=== PATIENT | male | born 1940 | race Caucasian/White ===

== ENCOUNTER 2017-07-02 10:39 | Inpatient (IN) | payer MEDICARE, OTHER ==
[~2017-07-02] VITALS: Ht 193 cm; Wt 116.4 kg
[~2017-07-02 10:39] MED LIST: ALBIPROI INH; ALBU90OI6 INH; AMLO10; AMLO10 PO; AMLO5 PO; ASPI81CH PO; Brovana15 MCG/2 M NEB; CALCAVITDA; Cymbalta30 MG; DIGO.125 PO; Dyazide 37.5-21 EACH PO; EZET10; EZET10 PO; FISH1000; FLUSAL2505 INH; GLIP10 PO; GLIP5; GLUC500; Glucophage1000 MG PO; HYDACE10B PO; Hair, Skin & N1 EACH; Hydrocodone-Ap1 EA23; METO100ER PO; METO50ER PO; Neurontin300 MG PO; OMEPRAZOLE MAGN20 MG PO; ONE DAILY COMP1 EACH PO; OXAP600; PREG50 PO; PROBIOTIC1 EAC1 PO; SITA50T2 PO; TOUJEO SOL300 UNIT/1; TRIHYD5075 PO; VENL150ER PO; VENL75ER PO; WARF5 PO
[2017-07-02 11:26] LABS: BASOPHILS ABSOLUTE AUTO 0.02 K/mm3 (0.00-0.23); BASOPHILS PERCENT AUTO 0 % (0-2); EOSINOPHILS ABSOLUTE AUTO 0.07 K/mm3 (0.00-0.68); EOSINOPHILS PERCENT AUTO 1 % (0-6); Hematocrit 32.7 % (37.0-53.0); Hemoglobin 10.4 g/dL (13.5-17.5); IMMATURE GRAN ABSOLUTE AUTO 0.06 K/mm3 (0.00-0.10); IMMATURE GRAN PERCENT AUTO 1 % (0-1); LYMPHOCYTES ABSOLUTE AUTO 2.74 K/mm3 (0.84-5.20); LYMPHOCYTES PERCENT AUTO 38 % (21-46); MONOCYTES ABSOLUTE AUTO 0.72 K/mm3 (0.16-1.47); MONOCYTES PERCENT AUTO 10 % (4-13); Mean Corpuscular HGB 31.8 pg (26.0-34.0); Mean Corpuscular HGB Conc 31.8 g/dL (31.5-36.5); Mean Corpuscular Volume 100 fL (80-100); Mean Platelet Volume 11.5 fL (9.1-12.4); NEUTROPHILS ABSOLUTE AUTO 3.69 K/mm3 (1.96-9.15); NEUTROPHILS PERCENT AUTO 51 % (41-73); Platelet Count 207 K/mm3 (150-400); RDW Coefficient Variation 16.4 % (11.7-14.2); RDW Standard Deviation 59.7 fL (35.1-46.3); Red Blood Cell Count 3.27 M/mm3 (4.30-5.90)
[2017-07-02 11:48] LABS: Alanine Aminotransfer (ALT/SGP 28 U/L (12-78); Albumin, Blood 3.7 g/dL (3.4-5.0); Albumin/Globulin Ratio 1.1 (0.8-1.8); Alk Phos 71 U/L (50-136); Anion Gap 8 mmol/L (6-16); Aspartate Aminotrans (AST/SGOT 26 U/L (12-37); Bilirubin, Total 0.6 mg/dL (0.1-1.0); Blood Urea Nitrogen 15 mg/dL (8-24); Bun/Creatinine Ratio 20.7 (12.0-20.0); CO2, Blood 26 mmol/L (21-32); Calcium, Blood 8.3 mg/dL (8.5-10.1); Chloride, Blood 105 mmol/L (98-108); Creatinine, Blood 0.72 mg/dL (0.60-1.20); Globulin, Blood 3.3 g/dL (2.2-4.0); Glomerular Filtration Rate >60 (60-); Glucose, Blood 191 mg/dL (70-99); Potassium, Blood 4.4 mmol/L (3.5-5.5); Sodium, Blood 139 mmol/L (136-145); Troponin I <0.015 ng/mL (0.000-0.040)
[2017-07-02] MEDS ORDERED: HYDR1TAB94 PO (13:16)
[2017-07-02] MEDS ORDERED: TOUJEO SOL300 UNIT/1 SC (13:19)
[2017-07-02] MEDS ORDERED: AZIT500 PO (13:19)
[2017-07-02] MEDS ORDERED: PRED20 PO (13:20)
[2017-07-02 13:55] LABS: International Normalized Ratio 2.55; Prothrombin Time Results 27.3 Sec (9.7-11.5)
[2017-07-02 14:11] LABS: Digoxin (Lanoxin) 0.73 ug/mL (0.80-2.00)
[2017-07-02] MEDS ORDERED: VENL25 PO (16:42)
[2017-07-02] MEDS ORDERED: GABA300 PO (16:44)
[2017-07-02] MEDS ORDERED: SITA50T2 PO (16:52)
[2017-07-03 03:16] LABS: PCO2 Arterial 32.9 mmHg (35-45); PO2 Arterial 59.4 mmHg (80-100); pH Blood Arterial 7.41 (7.35-7.45)
[2017-07-03 04:31] LABS: Source, Urine Catheter
[2017-07-03 04:33] LABS: Anion Gap 11 mmol/L (6-16); Blood Urea Nitrogen 19 mg/dL (8-24); Bun/Creatinine Ratio 20.1 (12.0-20.0); CO2, Blood 23 mmol/L (21-32); Chloride, Blood 102 mmol/L (98-108); Creatinine, Blood 0.95 mg/dL (0.60-1.20); Glomerular Filtration Rate >60 (60-); Glucose, Blood 246 mg/dL (70-99); Potassium, Blood 4.2 mmol/L (3.5-5.5); Sodium, Blood 136 mmol/L (136-145)
[2017-07-03 04:34] LABS: Bilirubin, Urine Neg (Neg); Blood, Urine Neg (Neg); Glucose Qualitative, Urine Neg (Neg); Ketones, Urine Neg (Neg); Leukocyte Esterase, Urine Neg (Neg); Nitrite, Urine Neg (Neg); Protein, Urine 1+ (Neg); Urobilinogen, Urine NORM (Normal)
[2017-07-03 04:37] LABS: International Normalized Ratio 2.46; Prothrombin Time Results 26.3 Sec (9.7-11.5)
[2017-07-03 04:39] LABS: Appearance, Urine Clear (Clear); Color, Urine Yellow (P-Yellow)
[2017-07-03 04:50] LABS: Influenza A Negative (NEGATIVE); Influenza B Negative (NEGATIVE)
[2017-07-03 04:58] LABS: Digoxin (Lanoxin) 0.46 ug/mL (0.80-2.00)
[2017-07-03 05:43] LABS: Troponin I 0.032 ng/mL (0.000-0.040)
[2017-07-04 05:11] LABS: pH Blood Arterial 7.47 (7.35-7.45)
[2017-07-04 05:12] LABS: PCO2 Arterial 35.9 mmHg (35-45); PO2 Arterial 65.3 mmHg (80-100)
[2017-07-04 05:32] LABS: BASOPHILS PERCENT AUTO 0 % (0-2); EOSINOPHILS PERCENT AUTO 0 % (0-6); Hemoglobin 10.2 g/dL (13.5-17.5); IMMATURE GRAN ABSOLUTE AUTO 0.04 K/mm3 (0.00-0.10); IMMATURE GRAN PERCENT AUTO 1 % (0-1); LYMPHOCYTES ABSOLUTE AUTO 1.01 K/mm3 (0.84-5.20); LYMPHOCYTES PERCENT AUTO 21 % (21-46); MONOCYTES ABSOLUTE AUTO 0.31 K/mm3 (0.16-1.47); MONOCYTES PERCENT AUTO 6 % (4-13); Mean Corpuscular HGB 31.9 pg (26.0-34.0); Mean Corpuscular HGB Conc 32.9 g/dL (31.5-36.5); Mean Platelet Volume 11.8 fL (9.1-12.4); NEUTROPHILS ABSOLUTE AUTO 3.52 K/mm3 (1.96-9.15); NEUTROPHILS PERCENT AUTO 72 % (41-73); Platelet Count 225 K/mm3 (150-400); RDW Coefficient Variation 16.3 % (11.7-14.2); RDW Standard Deviation 56.6 fL (35.1-46.3); White Blood Cell Count 4.88 K/mm3 (4.00-11.30)
[2017-07-04 05:35] LABS: Mean Corpuscular Volume 97 fL (80-100)
[2017-07-04 05:47] LABS: International Normalized Ratio 2.25
[2017-07-04 05:52] LABS: Anion Gap 10 mmol/L (6-16); Blood Urea Nitrogen 20 mg/dL (8-24); Bun/Creatinine Ratio 26.9 (12.0-20.0); CO2, Blood 26 mmol/L (21-32); CPK Creatine Kinase 60 U/L (39-308); Calcium, Blood 8.7 mg/dL (8.5-10.1); Chloride, Blood 101 mmol/L (98-108); Creatine Kinase MB 2.5 ng/mL (0.0-3.6); Creatine Kinase MB Index 4.2 (0.0-4.0); Creatinine, Blood 0.74 mg/dL (0.60-1.20); Glomerular Filtration Rate >60 (60-); Glucose, Blood 253 mg/dL (70-99); Potassium, Blood 4.1 mmol/L (3.5-5.5); Sodium, Blood 137 mmol/L (136-145)
[2017-07-05 04:10] LABS: International Normalized Ratio 2.9; Prothrombin Time Results 31.2 Sec (9.7-11.5)
[2017-07-05 07:31] LABS: BASOPHILS PERCENT AUTO 0 % (0-2); EOSINOPHILS PERCENT AUTO 0 % (0-6); Hematocrit 32.7 % (37.0-53.0); Hemoglobin 10.5 g/dL (13.5-17.5); IMMATURE GRAN ABSOLUTE AUTO 0.03 K/mm3 (0.00-0.10); IMMATURE GRAN PERCENT AUTO 1 % (0-1); LYMPHOCYTES ABSOLUTE AUTO 1.04 K/mm3 (0.84-5.20); LYMPHOCYTES PERCENT AUTO 19 % (21-46); MONOCYTES ABSOLUTE AUTO 0.69 K/mm3 (0.16-1.47); MONOCYTES PERCENT AUTO 13 % (4-13); Mean Corpuscular HGB 31.4 pg (26.0-34.0); Mean Corpuscular HGB Conc 32.1 g/dL (31.5-36.5); Mean Corpuscular Volume 98 fL (80-100); Mean Platelet Volume 11.3 fL (9.1-12.4); NEUTROPHILS ABSOLUTE AUTO 3.62 K/mm3 (1.96-9.15); NEUTROPHILS PERCENT AUTO 67 % (41-73); Platelet Count 233 K/mm3 (150-400); RDW Coefficient Variation 16.4 % (11.7-14.2); RDW Standard Deviation 59.4 fL (35.1-46.3); Red Blood Cell Count 3.34 M/mm3 (4.30-5.90); White Blood Cell Count 5.38 K/mm3 (4.00-11.30)
[2017-07-05 07:52] LABS: Anion Gap 10 mmol/L (6-16); Blood Urea Nitrogen 21 mg/dL (8-24); Bun/Creatinine Ratio 29.2 (12.0-20.0); CO2, Blood 28 mmol/L (21-32); Calcium, Blood 9.1 mg/dL (8.5-10.1); Chloride, Blood 100 mmol/L (98-108); Creatinine, Blood 0.72 mg/dL (0.60-1.20); Glomerular Filtration Rate >60 (60-); Glucose, Blood 301 mg/dL (70-99); Potassium, Blood 4.1 mmol/L (3.5-5.5); Sodium, Blood 138 mmol/L (136-145)
[2017-07-06 06:35] LABS: International Normalized Ratio 2.66; Prothrombin Time Results 28.5 Sec (9.7-11.5)
[2017-07-06] MEDS ORDERED: LISI5 PO (11:26)
[2017-07-06] MEDS ORDERED: SPIR25 PO (11:27)
[2017-07-25] MEDS ORDERED: PREG50 (15:45)
== END 2017-07-06 13:35 | disposition home or self-care (01) | DRG 871 ==
LOC: ER 10:39 → MEDS 14:08 → ICUE 14:08 → MEDS 15:06 → ICUE 07-03 03:37 → MEDS 07-05 15:38
PROVIDERS: Emergency Medicine; Internal Medicine; Internal Medicine Critical Care Medicine; Pharmacist
PROC: 5A09357 Assistance with Respiratory Ventilation, Less than 24 Consecutive Hours, Continuous Positive Airway Pressure (ICD-10-PCS; principal; 2017-07-03)
DX: A41.9 Sepsis, unspecified organism (principal); J18.9 Pneumonia, unspecified organism; J96.01 Acute respiratory failure with hypoxia; I50.41 Acute combined systolic (congestive) and diastolic (congestive) heart failure; I48.2 Chronic atrial fibrillation; E11.9 Type 2 diabetes mellitus without complications; I11.0 Hypertensive heart disease with heart failure; J44.0 Chronic obstructive pulmonary disease with (acute) lower respiratory infection; J44.1 Chronic obstructive pulmonary disease with (acute) exacerbation; I71.4 Abdominal aortic aneurysm, without rupture; K90.0 Celiac disease; G89.29 Other chronic pain; E66.9 Obesity, unspecified; E78.5 Hyperlipidemia, unspecified; G47.33 Obstructive sleep apnea (adult) (pediatric); F10.20 Alcohol dependence, uncomplicated; Z88.8 Allergy status to other drugs, medicaments and biological substances; Z85.46 Personal history of malignant neoplasm of prostate; Z79.01 Long term (current) use of anticoagulants; Z79.82 Long term (current) use of aspirin; Z87.891 Personal history of nicotine dependence; Z79.52 Long term (current) use of systemic steroids; Z68.33 Body mass index [BMI] 33.0-33.9, adult; Z79.891 Long term (current) use of opiate analgesic; Z79.899 Other long term (current) drug therapy; Z79.4 Long term (current) use of insulin
CPT/HCPCS: 36415; 36600; 51702; 71045; 71046; 80048; 80053; 80162; 80202; 82550; 82553; 82803; 82947; 83605; 83880; 84145; 84484; 85025; 85610; 85730; 87040; 87804; 93005; 93010; 93306; 94640; 94660; 94760; 94762; 96365; 97161; 97165; 97530; 99285; G8978; G8979; G8980; G8987; G8988; G8989; J0696; J1650; J1815; J1940; J1956; J2060; J2543; J2930; J3370; J3411; J7030; J7050

== ENCOUNTER 2017-07-26 03:00 | Day surgery (SDC) | payer MEDICARE, OTHER ==
[~2017-07-26] VITALS: Ht 193 cm; Wt 113.0 kg
[~2017-07-26 03:00] MED LIST changes: +AZIT500 PO; +GABA300 PO; +HYDR1TAB94 PO; +LISI5 PO; +PRED20 PO; +PREG50; +SPIR25 PO; +TOUJEO SOL300 UNIT/1 SC; +VENL25 PO
[2017-07-27 04:56] LABS: BASOPHILS ABSOLUTE AUTO 0.02 K/mm3 (0.00-0.23); BASOPHILS PERCENT AUTO 0 % (0-2); EOSINOPHILS ABSOLUTE AUTO 0.37 K/mm3 (0.00-0.68); EOSINOPHILS PERCENT AUTO 3 % (0-6); Hematocrit 31.7 % (37.0-53.0); Hemoglobin 10.4 g/dL (13.5-17.5); IMMATURE GRAN ABSOLUTE AUTO 0.03 K/mm3 (0.00-0.10); IMMATURE GRAN PERCENT AUTO 0 % (0-1); LYMPHOCYTES ABSOLUTE AUTO 6.23 K/mm3 (0.84-5.20); LYMPHOCYTES PERCENT AUTO 55 % (21-46); MONOCYTES ABSOLUTE AUTO 0.92 K/mm3 (0.16-1.47); MONOCYTES PERCENT AUTO 8 % (4-13); Mean Corpuscular HGB 30.5 pg (26.0-34.0); Mean Corpuscular HGB Conc 32.8 g/dL (31.5-36.5); NEUTROPHILS ABSOLUTE AUTO 3.77 K/mm3 (1.96-9.15); NEUTROPHILS PERCENT AUTO 33 % (41-73); Platelet Count 188 K/mm3 (150-400); RDW Coefficient Variation 14.8 % (11.7-14.2); RDW Standard Deviation 50.7 fL (35.1-46.3); Red Blood Cell Count 3.41 M/mm3 (4.30-5.90); White Blood Cell Count 11.34 K/mm3 (4.00-11.30)
[2017-07-27 05:01] LABS: Mean Corpuscular Volume 93 fL (80-100)
[2017-07-27 05:09] LABS: International Normalized Ratio 1.19; Prothrombin Time Results 12.4 Sec (9.7-11.5)
[2017-07-27 05:15] LABS: Anion Gap 8 mmol/L (6-16); Blood Urea Nitrogen 13 mg/dL (8-24); Bun/Creatinine Ratio 17.5 (12.0-20.0); CO2, Blood 24 mmol/L (21-32); Calcium, Blood 8.4 mg/dL (8.5-10.1); Chloride, Blood 102 mmol/L (98-108); Creatinine, Blood 0.74 mg/dL (0.60-1.20); Glomerular Filtration Rate >60 (60-); Glucose, Blood 139 mg/dL (70-99); Potassium, Blood 4.2 mmol/L (3.5-5.5); Sodium, Blood 134 mmol/L (136-145)
[2017-07-27] MEDS ORDERED: CLOP75 PO (08:59)
[2017-07-27] MEDS ORDERED: METO50ER PO (09:00)
[2017-07-27] MEDS ORDERED: DIGOX125 MCG PO (09:01)
[2017-07-27] MEDS ORDERED: PANT40 PO (09:02)
[2017-07-27] MEDS ORDERED: TORSE20 PO (09:07)
== END 2017-07-27 12:15 | disposition home or self-care (01) ==
LOC: MHTC 03:00 → ICUW 10:02 → ICUE 15:19 → MHTC 07-27 12:15
PROVIDERS: Internal Medicine Interventional Cardiology; Pharmacist
PROC: 027034Z Dilation of Coronary Artery, One Artery with Drug-eluting Intraluminal Device, Percutaneous Approach (ICD-10-PCS; principal; 2017-07-26)
PROC: B211YZZ Fluoroscopy of Multiple Coronary Arteries using Other Contrast (ICD-10-PCS; principal; 2017-07-26)
PROC: B214YZZ Fluoroscopy of Right Heart using Other Contrast (ICD-10-PCS; principal; 2017-07-26)
PROC: 4A023N7 Measurement of Cardiac Sampling and Pressure, Left Heart, Percutaneous Approach (ICD-10-PCS; principal; 2017-07-26)
PROC: B241ZZ3 Ultrasonography of Multiple Coronary Arteries, Intravascular (ICD-10-PCS; principal; 2017-07-26)
PROC: 02703ZZ Dilation of Coronary Artery, One Artery, Percutaneous Approach (ICD-10-PCS; principal; 2017-07-26)
DX: I25.118 Atherosclerotic heart disease of native coronary artery with other forms of angina pectoris (principal); I25.84 Coronary atherosclerosis due to calcified coronary lesion; I42.0 Dilated cardiomyopathy; I11.0 Hypertensive heart disease with heart failure; I50.9 Heart failure, unspecified; J44.9 Chronic obstructive pulmonary disease, unspecified; F32.9 Major depressive disorder, single episode, unspecified; E78.5 Hyperlipidemia, unspecified; Z87.891 Personal history of nicotine dependence; I35.0 Nonrheumatic aortic (valve) stenosis; G47.33 Obstructive sleep apnea (adult) (pediatric); E11.9 Type 2 diabetes mellitus without complications; Z79.4 Long term (current) use of insulin
CPT/HCPCS: 36415; 80048; 82947; 85025; 85347; 85610; 92978; 93005; 93010; 93460; 99152; 99153; A9270; C1725; C1753; C1769; C1874; C1894; C9600; J1644; J1815; J2250; J3010; J7030; Q9967

== ENCOUNTER 2017-08-30 18:47 | Inpatient (IN) | payer MEDICARE, OTHER ==
[~2017-08-30] VITALS: Ht 193 cm; Wt 113.0 kg
[~2017-08-30 18:47] MED LIST changes: +CLOP75 PO; +DIGOX125 MCG PO; +PANT40 PO; +TORSE20 PO
[2017-08-30 19:51] LABS: BASOPHILS ABSOLUTE AUTO 0.02 K/mm3 (0.00-0.23); BASOPHILS PERCENT AUTO 0 % (0-2); EOSINOPHILS ABSOLUTE AUTO 0.03 K/mm3 (0.00-0.68); EOSINOPHILS PERCENT AUTO 0 % (0-6); Hematocrit 35.4 % (37.0-53.0); Hemoglobin 11.6 g/dL (13.5-17.5); IMMATURE GRAN ABSOLUTE AUTO 0.06 K/mm3 (0.00-0.10); IMMATURE GRAN PERCENT AUTO 0 % (0-1); LYMPHOCYTES ABSOLUTE AUTO 2.76 K/mm3 (0.84-5.20); LYMPHOCYTES PERCENT AUTO 19 % (21-46); MONOCYTES ABSOLUTE AUTO 0.79 K/mm3 (0.16-1.47); MONOCYTES PERCENT AUTO 6 % (4-13); Mean Corpuscular HGB 29.9 pg (26.0-34.0); Mean Corpuscular HGB Conc 32.8 g/dL (31.5-36.5); Mean Corpuscular Volume 91 fL (80-100); Mean Platelet Volume 11.5 fL (9.1-12.4); NEUTROPHILS ABSOLUTE AUTO 10.73 K/mm3 (1.96-9.15); NEUTROPHILS PERCENT AUTO 75 % (41-73); Platelet Count 249 K/mm3 (150-400); RDW Coefficient Variation 15.7 % (11.7-14.2); RDW Standard Deviation 52.2 fL (35.1-46.3); Red Blood Cell Count 3.88 M/mm3 (4.30-5.90); White Blood Cell Count 14.39 K/mm3 (4.00-11.30)
[2017-08-30 20:15] LABS: Alanine Aminotransfer (ALT/SGP 20 U/L (12-78); Albumin, Blood 3.9 g/dL (3.4-5.0); Albumin/Globulin Ratio 1.1 (0.8-1.8); Alk Phos 87 U/L (50-136); Anion Gap 9 mmol/L (6-16); Aspartate Aminotrans (AST/SGOT 19 U/L (12-37); Bilirubin, Total 0.6 mg/dL (0.1-1.0); Blood Urea Nitrogen 18 mg/dL (8-24); Bun/Creatinine Ratio 23.1 (12.0-20.0); CO2, Blood 22 mmol/L (21-32); Calcium, Blood 8.6 mg/dL (8.5-10.1); Chloride, Blood 106 mmol/L (98-108); Creatinine, Blood 0.78 mg/dL (0.60-1.20); Globulin, Blood 3.6 g/dL (2.2-4.0); Glomerular Filtration Rate >60 (60-); Glucose, Blood 199 mg/dL (70-99); Potassium, Blood 3.9 mmol/L (3.5-5.5); Sodium, Blood 137 mmol/L (136-145); Total Protein, Blood 7.5 g/dL (6.4-8.2)
[2017-08-30 20:48] LABS: Influenza A Negative (NEGATIVE); Influenza B Negative (NEGATIVE)
[2017-08-30 22:40] LABS: Source, Urine Clean Catch
[2017-08-30 22:43] LABS: Appearance, Urine Clear (Clear); Bilirubin, Urine Neg (Neg); Blood, Urine Neg (Neg); Color, Urine Yellow (P-Yellow); Glucose Qualitative, Urine Neg (Neg); Ketones, Urine Neg (Neg); Leukocyte Esterase, Urine 1+ (Neg); Nitrite, Urine Neg (Neg); Protein, Urine 3+ (Neg); Urobilinogen, Urine 2+ (Normal)
[2017-08-30 22:49] LABS: Bacteria Mod /hpf; Red Blood Cells, Urine 0-2 /hpf (0-2); Squamous Epithelial Cells Few /hpf (Few); White Blood Cells, Urine 0-2 /hpf (0-5)
[2017-08-30 23:56] LABS: Digoxin (Lanoxin) 0.42 ug/mL (0.80-2.00)
[2017-08-31 04:12] LABS: BASOPHILS ABSOLUTE AUTO 0.02 K/mm3 (0.00-0.23); BASOPHILS PERCENT AUTO 0 % (0-2); EOSINOPHILS ABSOLUTE AUTO 0.03 K/mm3 (0.00-0.68); EOSINOPHILS PERCENT AUTO 0 % (0-6); Hematocrit 32.9 % (37.0-53.0); Hemoglobin 10.8 g/dL (13.5-17.5); IMMATURE GRAN ABSOLUTE AUTO 0.02 K/mm3 (0.00-0.10); IMMATURE GRAN PERCENT AUTO 0 % (0-1); LYMPHOCYTES PERCENT AUTO 30 % (21-46); MONOCYTES ABSOLUTE AUTO 0.48 K/mm3 (0.16-1.47); MONOCYTES PERCENT AUTO 5 % (4-13); Mean Corpuscular HGB 29.7 pg (26.0-34.0); Mean Corpuscular HGB Conc 32.8 g/dL (31.5-36.5); Mean Corpuscular Volume 90 fL (80-100); Mean Platelet Volume 11.8 fL (9.1-12.4); NEUTROPHILS ABSOLUTE AUTO 6.06 K/mm3 (1.96-9.15); NEUTROPHILS PERCENT AUTO 64 % (41-73); Platelet Count 211 K/mm3 (150-400); RDW Coefficient Variation 15.7 % (11.7-14.2); Red Blood Cell Count 3.64 M/mm3 (4.30-5.90); White Blood Cell Count 9.41 K/mm3 (4.00-11.30)
[2017-08-31 04:31] LABS: Alanine Aminotransfer (ALT/SGP 16 U/L (12-78); Albumin, Blood 3.3 g/dL (3.4-5.0); Alk Phos 72 U/L (50-136); Anion Gap 10 mmol/L (6-16); Aspartate Aminotrans (AST/SGOT 15 U/L (12-37); Bilirubin, Total 0.6 mg/dL (0.1-1.0); Blood Urea Nitrogen 16 mg/dL (8-24); Bun/Creatinine Ratio 21.7 (12.0-20.0); CO2, Blood 23 mmol/L (21-32); Chloride, Blood 107 mmol/L (98-108); Creatinine, Blood 0.74 mg/dL (0.60-1.20); Globulin, Blood 3.4 g/dL (2.2-4.0); Glomerular Filtration Rate >60 (60-); Glucose, Blood 207 mg/dL (70-99); Sodium, Blood 140 mmol/L (136-145); Total Protein, Blood 6.7 g/dL (6.4-8.2)
[2017-08-31 05:54] LABS: Digoxin (Lanoxin) 0.37 ug/mL (0.80-2.00)
[2017-09-01 05:22] LABS: Anion Gap 9 mmol/L (6-16); Blood Urea Nitrogen 20 mg/dL (8-24); Bun/Creatinine Ratio 23.2 (12.0-20.0); CO2, Blood 25 mmol/L (21-32); Chloride, Blood 103 mmol/L (98-108); Creatinine, Blood 0.86 mg/dL (0.60-1.20); Glomerular Filtration Rate >60 (60-); Glucose, Blood 307 mg/dL (70-99); Potassium, Blood 4.3 mmol/L (3.5-5.5); Sodium, Blood 137 mmol/L (136-145)
[2017-09-01 19:38] LABS: Vancomycin, Trough 12.3 ug/mL (5.0-10.0)
[2017-09-02 05:25] LABS: BASOPHILS ABSOLUTE AUTO 0.01 K/mm3 (0.00-0.23); BASOPHILS PERCENT AUTO 0 % (0-2); EOSINOPHILS PERCENT AUTO 0 % (0-6); Hematocrit 33.9 % (37.0-53.0); Hemoglobin 11.3 g/dL (13.5-17.5); IMMATURE GRAN ABSOLUTE AUTO 0.07 K/mm3 (0.00-0.10); IMMATURE GRAN PERCENT AUTO 1 % (0-1); LYMPHOCYTES ABSOLUTE AUTO 1.05 K/mm3 (0.84-5.20); LYMPHOCYTES PERCENT AUTO 19 % (21-46); MONOCYTES ABSOLUTE AUTO 0.49 K/mm3 (0.16-1.47); MONOCYTES PERCENT AUTO 9 % (4-13); Mean Corpuscular HGB 29.8 pg (26.0-34.0); Mean Corpuscular HGB Conc 33.3 g/dL (31.5-36.5); Mean Corpuscular Volume 89 fL (80-100); Mean Platelet Volume 12.1 fL (9.1-12.4); NEUTROPHILS ABSOLUTE AUTO 4.01 K/mm3 (1.96-9.15); NEUTROPHILS PERCENT AUTO 71 % (41-73); Platelet Count 255 K/mm3 (150-400); RDW Coefficient Variation 15.1 % (11.7-14.2); RDW Standard Deviation 49.1 fL (35.1-46.3); Red Blood Cell Count 3.79 M/mm3 (4.30-5.90); White Blood Cell Count 5.63 K/mm3 (4.00-11.30)
[2017-09-02 06:01] LABS: Anion Gap 8 mmol/L (6-16); Blood Urea Nitrogen 25 mg/dL (8-24); Bun/Creatinine Ratio 30.8 (12.0-20.0); CO2, Blood 24 mmol/L (21-32); Chloride, Blood 102 mmol/L (98-108); Creatinine, Blood 0.81 mg/dL (0.60-1.20); Glomerular Filtration Rate >60 (60-); Glucose, Blood 348 mg/dL (70-99); Potassium, Blood 4.4 mmol/L (3.5-5.5); Sodium, Blood 134 mmol/L (136-145)
[2017-09-02] MEDS ORDERED: Mucinex600 MG PO (11:07)
[2017-09-02] MEDS ORDERED: Augmentin 875-1 EACH PO (11:11)
[2017-09-02] MEDS ORDERED: DOXY100 PO (11:12)
[2017-09-02] MEDS ORDERED: PROBIOTIC250 MG PO (11:13)
[2017-09-02] MEDS ORDERED: PRED20 PO (11:16)
== END 2017-09-02 12:39 | disposition home or self-care (01) | DRG 871 ==
LOC: ER 18:47 → MEDS 23:15
PROVIDERS: Emergency Medicine; Internal Medicine; Physician Assistant
DX: A41.9 Sepsis, unspecified organism (principal); J18.9 Pneumonia, unspecified organism; I50.42 Chronic combined systolic (congestive) and diastolic (congestive) heart failure; J96.11 Chronic respiratory failure with hypoxia; J44.0 Chronic obstructive pulmonary disease with (acute) lower respiratory infection; Y95 Nosocomial condition; I25.10 Atherosclerotic heart disease of native coronary artery without angina pectoris; J44.9 Chronic obstructive pulmonary disease, unspecified; E11.9 Type 2 diabetes mellitus without complications; I11.0 Hypertensive heart disease with heart failure; I48.91 Unspecified atrial fibrillation; J20.9 Acute bronchitis, unspecified; Z88.8 Allergy status to other drugs, medicaments and biological substances; Z79.02 Long term (current) use of antithrombotics/antiplatelets; Z79.82 Long term (current) use of aspirin; Z79.4 Long term (current) use of insulin; Z79.899 Other long term (current) drug therapy; Z85.46 Personal history of malignant neoplasm of prostate
CPT/HCPCS: 36415; 71046; 80048; 80053; 80162; 80202; 81001; 82947; 83605; 83880; 84145; 84484; 85025; 87040; 87081; 87086; 87430; 87804; 93005; 93010; 94640; 94660; 94760; 94762; 96361; 96374; 99285; J0456; J0696; J1650; J1956; J2543; J2930; J3010; J3370; J7030; J7050; J7605

== ENCOUNTER 2018-08-16 13:33 | Inpatient (IN) | payer MEDICARE, OTHER ==
[~2018-08-16] VITALS: Ht 188 cm; Wt 123.3 kg
[~2018-08-16 13:33] MED LIST changes: +Augmentin 875-1 EACH PO; +DOXY100 PO; +Mucinex600 MG PO; +PROBIOTIC250 MG PO
[2018-08-16 14:40] LABS: BASOPHILS ABSOLUTE AUTO 0.02 K/mm3 (0.00-0.23); BASOPHILS PERCENT AUTO 0 % (0-2); EOSINOPHILS ABSOLUTE AUTO 0.28 K/mm3 (0.00-0.68); EOSINOPHILS PERCENT AUTO 3 % (0-6); Hematocrit 34.7 % (37.0-53.0); Hemoglobin 10.7 g/dL (13.5-17.5); IMMATURE GRAN ABSOLUTE AUTO 0.03 K/mm3 (0.00-0.10); IMMATURE GRAN PERCENT AUTO 0 % (0-1); LYMPHOCYTES ABSOLUTE AUTO 5.64 K/mm3 (0.84-5.20); LYMPHOCYTES PERCENT AUTO 65 % (21-46); MONOCYTES ABSOLUTE AUTO 0.69 K/mm3 (0.16-1.47); MONOCYTES PERCENT AUTO 8 % (4-13); Mean Corpuscular HGB 29.6 pg (26.0-34.0); Mean Corpuscular HGB Conc 30.8 g/dL (31.5-36.5); Mean Corpuscular Volume 96 fL (80-100); Mean Platelet Volume 12.4 fL (9.1-12.4); NEUTROPHILS ABSOLUTE AUTO 2.07 K/mm3 (1.96-9.15); NEUTROPHILS PERCENT AUTO 24 % (41-73); Platelet Count 202 K/mm3 (150-400); RDW Coefficient Variation 18.3 % (11.7-14.2); RDW Standard Deviation 63.8 fL (35.1-46.3); Red Blood Cell Count 3.61 M/mm3 (4.30-5.90); White Blood Cell Count 8.73 K/mm3 (4.00-11.30)
[2018-08-16 15:06] LABS: Albumin/Globulin Ratio 1.2 (0.8-1.8); Bilirubin, Total 0.6 mg/dL (0.1-1.0); Calcium, Blood 8.4 mg/dL (8.5-10.1); Creatinine, Blood 1.39 mg/dL (0.60-1.20); Globulin, Blood 3.3 g/dL (2.2-4.0); Potassium, Blood 4.3 mmol/L (3.5-5.5); Total Protein, Blood 7.3 g/dL (6.4-8.2)
[2018-08-16 15:07] LABS: Troponin I 0.02 ng/mL (0.000-0.040)
[2018-08-16] MEDS ORDERED: CLOP75 PO (18:44)
[2018-08-16] MEDS ORDERED: TOUJEO SOL300 UNIT/1 SC ×2 (18:48→19:28)
[2018-08-16] MEDS ORDERED: GLIP10 PO (19:05)
[2018-08-16] MEDS ORDERED: LOSA25 PO (19:07)
[2018-08-16] MEDS ORDERED: Flovent 110 MCG12 GM INH (19:07)
[2018-08-16] MEDS ORDERED: Norco 5-325 Ta1 EACH PO (19:10)
[2018-08-16] MEDS ORDERED: Fenofibrate200 MG PO (19:10)
[2018-08-16] MEDS ORDERED: FURO20 PO (19:11)
[2018-08-16] MEDS ORDERED: Pantoprazole So40 MG PO (19:12)
[2018-08-16] MEDS ORDERED: VENL75ER PO (19:13)
[2018-08-16] MEDS ORDERED: WARF5 PO ×2 (22:11→22:12)
[2018-08-16 22:40] LABS: International Normalized Ratio 3.45; Prothrombin Time Results 32.7 Sec (9.7-11.5)
[2018-08-17 05:28] LABS: BASOPHILS ABSOLUTE AUTO 0.02 K/mm3 (0.00-0.23); BASOPHILS PERCENT AUTO 0 % (0-2); EOSINOPHILS ABSOLUTE AUTO 0.25 K/mm3 (0.00-0.68); EOSINOPHILS PERCENT AUTO 3 % (0-6); Hematocrit 32.5 % (37.0-53.0); IMMATURE GRAN ABSOLUTE AUTO 0.02 K/mm3 (0.00-0.10); IMMATURE GRAN PERCENT AUTO 0 % (0-1); LYMPHOCYTES ABSOLUTE AUTO 5.88 K/mm3 (0.84-5.20); LYMPHOCYTES PERCENT AUTO 70 % (21-46); MONOCYTES ABSOLUTE AUTO 0.56 K/mm3 (0.16-1.47); MONOCYTES PERCENT AUTO 7 % (4-13); Mean Corpuscular HGB 29.1 pg (26.0-34.0); Mean Corpuscular HGB Conc 30.8 g/dL (31.5-36.5); Mean Corpuscular Volume 95 fL (80-100); NEUTROPHILS PERCENT AUTO 20 % (41-73); Platelet Count 165 K/mm3 (150-400); RDW Coefficient Variation 18.1 % (11.7-14.2); RDW Standard Deviation 62.8 fL (35.1-46.3); Red Blood Cell Count 3.44 M/mm3 (4.30-5.90); White Blood Cell Count 8.43 K/mm3 (4.00-11.30)
--- NOTE | 2018-08-17 05:33 | NUR ---
SHIFT SUMMARY PT ADMITTED FOR ACUTE COMBINED SYSTOLIC AND DIASTOLIC HEART FAILURE. ALERT/ORIENTED. UP INDEPENDENTLY IN ROOM, STEADY ON FEET. PT USES CPAP AT NIGHT. OXYGEN PLACED ON AT 2L/NC PT NOT TOLERATING CPAP WELL DURING THE NIGHT. NO ACUTE EVENTS NOTED DURING THE NIGHT. TELE ON SHOWS AFIB RATE 100. WILL CONTINUE TO MONITOR.
[2018-08-17 06:02] LABS: Albumin, Blood 3.6 g/dL (3.4-5.0); Albumin/Globulin Ratio 1.2 (0.8-1.8); Bilirubin, Total 0.5 mg/dL (0.1-1.0); Bun/Creatinine Ratio 25.2 (12.0-20.0); Calcium, Blood 8.2 mg/dL (8.5-10.1); Creatinine, Blood 1.27 mg/dL (0.60-1.20); Magnesium, Blood 1.9 mg/dL (1.6-2.4); Potassium, Blood 3.9 mmol/L (3.5-5.5); Total Protein, Blood 6.6 g/dL (6.4-8.2)
--- NOTE | 2018-08-17 09:20 | NUR ---
PARTIAL ECHOCARDIOGRAM COMPLETED
[2018-08-17 09:23] LABS: International Normalized Ratio 2.46
--- NOTE | 2018-08-17 18:36 | NUR ---
HE HAS HAD A FEW VISITORS TODAY. CONTINUOUS BIOX ON. PAS ON BILATERALLY. TELE AFIB LOW 100'S.BP 140'S/90'S. HE HAS BEEN COOPERATIVE AND INDEPENDENTLY AMBULATORY ALL DAY IN THE ROOM. HE DIURISED WELL THIS MORNING WITH THE IV LASIX. HIS BROUGHT IN HIS HOME CPAP MACHINE. CBG'S BELOW 200. INR IN THERAPEUTIC RANGE SO COUMADIN RESUMED. HE HAD A LITTLE CONFUSION AT DINNER TIME. HE TOOK OFF HIS CON'T BIOX AND SCD'S AND PUT HIS JEANS ON AND SPOKE A LITTLE VAGUE. CALLED ME TO TELL ME OF HIS DAILY ALCOHOL INTAKE AT HOME. NOTIFIED. JAYLENEWA AND HAO LIBRIUM ORDERS RECEIVED.
--- NOTE | 2018-08-18 04:59 | NUR ---
SHIFT SUMMARY PT SLEPT WELL DURING THE NIGHT AFTER REQUESTING TO HAVE BI-OX TURNED OFF PER RT. NO ACUTE EVENTS NOTED DURING THE NIGHT, WILL CONTINUE TO MONITOR.
[2018-08-18 05:52] LABS: International Normalized Ratio 2.15; Prothrombin Time Results 21.3 Sec (9.7-11.5)
--- NOTE | 2018-08-19 05:23 | NUR ---
SHIFT SUMMARY PT SLEPT FAIR, CPAP ON T/O NIGHT. NO ACUTE EVENTS NOTED DURING THE NIGHT, WILL CONTINUE TO MONITOR.
[2018-08-19 06:03] LABS: International Normalized Ratio 2.26; Prothrombin Time Results 22.2 Sec (9.7-11.5)
[2018-08-19 06:07] LABS: Albumin, Blood 3.7 g/dL (3.4-5.0); Anion Gap 9 mmol/L (6-16); Blood Urea Nitrogen 30 mg/dL (8-24); Bun/Creatinine Ratio 25.9 (12.0-20.0); CO2, Blood 24 mmol/L (21-32); Calcium, Blood 8.4 mg/dL (8.5-10.1); Chloride, Blood 105 mmol/L (98-108); Creatinine, Blood 1.16 mg/dL (0.60-1.20); Glomerular Filtration Rate >60 (60-); Glucose, Blood 107 mg/dL (70-99); Phosphorus, Blood 3.3 mg/dL (2.5-4.9); Potassium, Blood 3.7 mmol/L (3.5-5.5); Sodium, Blood 138 mmol/L (136-145)
[2018-08-19] MEDS ORDERED: DIGOX125 MCG PO (16:23)
[2018-08-19] MEDS ORDERED: SPIR25 PO (16:24)
--- NOTE | 2018-08-19 17:11 | NUR ---
PT AOX4 AND COOPERATIVE OF ALL CARE DISCHARGED AT 1505 WITH TO TRANSFER. PT HAD ALL PAPERS REVIEWED AND EDUCATIONAL MATERIAL SENT WITH PT. APPOITMENT SCHEDULED WITH DR MACK 08/14/16 @ 8:00 AM. NO DISTRESS NOTED AT THIS TIME.
== END 2018-08-19 17:00 | disposition home or self-care (01) | DRG 293 ==
LOC: ER 13:33 → MEDS 18:34
PROVIDERS: Internal Medicine; Nurse Practitioner Acute Care; Physician Assistant; ADMIT Internal Medicine
DX: I11.0 Hypertensive heart disease with heart failure (principal); I50.43 Acute on chronic combined systolic (congestive) and diastolic (congestive) heart failure; K21.9 Gastro-esophageal reflux disease without esophagitis; E11.9 Type 2 diabetes mellitus without complications; J44.9 Chronic obstructive pulmonary disease, unspecified; Z87.891 Personal history of nicotine dependence; F10.20 Alcohol dependence, uncomplicated; G47.33 Obstructive sleep apnea (adult) (pediatric); F32.9 Major depressive disorder, single episode, unspecified; I25.10 Atherosclerotic heart disease of native coronary artery without angina pectoris; I48.2 Chronic atrial fibrillation; Z79.01 Long term (current) use of anticoagulants; I27.20 Pulmonary hypertension, unspecified; Z85.46 Personal history of malignant neoplasm of prostate; I08.3 Combined rheumatic disorders of mitral, aortic and tricuspid valves
CPT/HCPCS: 36415; 71046; 80053; 80069; 82947; 83036; 83735; 83880; 84484; 85025; 85379; 85610; 93005; 93010; 93308; 93321; 94660; 94762; 97116; 97161; 97530; 99285-25; A9270-GY; J1644; J1940

== ENCOUNTER 2018-08-23 06:00 | Day surgery (SDC) | payer MEDICARE, OTHER ==
[~2018-08-23] VITALS: Ht 193 cm; Wt 118.0 kg
[~2018-08-23 06:00] MED LIST changes: +FURO20 PO; +Fenofibrate200 MG PO; +Flovent 110 MCG12 GM INH; +LOSA25 PO; +Norco 5-325 Ta1 EACH PO; +Pantoprazole So40 MG PO
[2018-08-23] MEDS ORDERED: ALBU90OI6 INH (06:29)
[2018-08-23] MEDS ORDERED: LISI5 PO (06:31)
[2018-08-23] MEDS ORDERED: GLUCOSAMINE &1 EACH PO (06:31)
[2018-08-23] MEDS ORDERED: Flovent 110 MCG12 GM INH (06:32)
[2018-08-23] MEDS ORDERED: FISH OIL 500 M1 EAC1 PO (06:36)
[2018-08-23 07:08] LABS: International Normalized Ratio 1.75; Prothrombin Time Results 17.6 Sec (9.7-11.5)
--- NOTE | 2018-08-23 11:27 | NUR ---
TR BAND REMOVED, RED CLOTH DOT DRESSING APPLIED TO RIGHT WRIST. SITE APPEARS STABLE. LIGHT PRESSURE DRESSING APPLIED TO RIGHT WRIST WITH 2X2 GAUZE AND COBAN. ARM BOARD ON FOR SUPPORT. PT IV REMOVED FROM LAC WITH CATH INTACT, PRESSURE DRESSING APPLIED. PT AND VERBALIZED UNDERSTANDING OF D/C INSTRUCTIONS. TO DRIVE PT HOME. PT ENCOURAGED TO CALL AND SCHEDULE FOLLOW UP APT WITH DR. STINSON AFTER TAVR IS COMPLETE. PT OUT TO PRIVATE VEHICLE VIA W/C NADN AT TIME OF DISPO. PAPERWORK IN HAND.
== END 2018-08-23 11:30 | disposition home or self-care (01) ==
LOC: MHTC 06:00
PROVIDERS: Internal Medicine Cardiovascular Disease
DX: Z01.810 Encounter for preprocedural cardiovascular examination (principal); I35.0 Nonrheumatic aortic (valve) stenosis; I77.1 Stricture of artery; I25.10 Atherosclerotic heart disease of native coronary artery without angina pectoris; I42.0 Dilated cardiomyopathy; I48.2 Chronic atrial fibrillation; I10 Essential (primary) hypertension; E11.40 Type 2 diabetes mellitus with diabetic neuropathy, unspecified; J44.9 Chronic obstructive pulmonary disease, unspecified; F32.9 Major depressive disorder, single episode, unspecified; E78.5 Hyperlipidemia, unspecified; G47.33 Obstructive sleep apnea (adult) (pediatric); Z87.442 Personal history of urinary calculi; Z79.899 Other long term (current) drug therapy; Z79.02 Long term (current) use of antithrombotics/antiplatelets; Z79.01 Long term (current) use of anticoagulants; Z79.4 Long term (current) use of insulin; Z87.891 Personal history of nicotine dependence; Z91.018 Allergy to other foods
CPT/HCPCS: 85610; 93454; 99152; 99153; C1769; C1894; J0690; J1644; J2250; J3010; J7030; Q9967

== ENCOUNTER 2019-03-19 12:52 | Day surgery (SDC) | payer MEDICARE, OTHER ==
[~2019-03-19] VITALS: Ht 193 cm; Wt 116.0 kg
[~2019-03-19 12:52] MED LIST changes: +BENZ100A; +CYCL10; +FISH OIL 500 M1 EAC1 PO; +GLUCOSAMINE &1 EACH PO
== END 2019-03-19 15:00 | disposition home or self-care (01) ==
LOC: ORSCSDS 12:52
PROVIDERS: Internal Medicine Gastroenterology
PROC: 0DB58ZX Excision of Esophagus, Via Natural or Artificial Opening Endoscopic, Diagnostic (ICD-10-PCS; principal; 2019-03-19 14:15)
DX: K22.70 Barrett's esophagus without dysplasia (principal); G47.33 Obstructive sleep apnea (adult) (pediatric); K44.9 Diaphragmatic hernia without obstruction or gangrene; K21.9 Gastro-esophageal reflux disease without esophagitis; E11.9 Type 2 diabetes mellitus without complications; E78.5 Hyperlipidemia, unspecified; E66.9 Obesity, unspecified; K76.0 Fatty (change of) liver, not elsewhere classified; Z68.31 Body mass index [BMI] 31.0-31.9, adult; Z79.899 Other long term (current) drug therapy; Z79.01 Long term (current) use of anticoagulants
CPT/HCPCS: 82947; 88305; 88312; J2704; J7120

== ENCOUNTER 2019-03-27 13:09 | Emergency (ER) | payer MEDICARE, OTHER ==
[~2019-03-27] VITALS: Ht 193 cm; Wt 113.4 kg
[2019-03-27 13:48] LABS: Hematocrit 32.7 % (37.0-53.0); Hemoglobin 10.5 g/dL (13.5-17.5); Mean Corpuscular HGB 34.8 pg (26.0-34.0); Mean Corpuscular HGB Conc 32.1 g/dL (31.5-36.5); Mean Corpuscular Volume 108 fL (80-100); Mean Platelet Volume 11.1 fL (9.1-12.4); Platelet Count 183 K/mm3 (150-400); RDW Coefficient Variation 16.2 % (11.7-14.2); RDW Standard Deviation 64.2 fL (35.1-46.3); Red Blood Cell Count 3.02 M/mm3 (4.30-5.90); White Blood Cell Count 9.88 K/mm3 (4.00-11.30)
[2019-03-27 14:03] LABS: International Normalized Ratio 1.59; Prothrombin Time Results 16.2 Sec (9.7-11.5)
[2019-03-27 14:21] LABS: BAND PERCENT MAN 1 % (0-8); BASOPHILS PERCENT MAN 0 % (0-2); EOSINOPHILS ABSOLUTE MAN 0.29 K/mm3 (0.00-0.68); EOSINOPHILS PERCENT MAN 3 % (0-6); LYMPHOCYTES % ATYPICAL MANUAL 2 % (0-0); LYMPHOCYTES PERCENT MAN 75 % (21-46); MONOCYTES ABSOLUTE MAN 0.19 K/mm3 (0.16-1.47); MONOCYTES PERCENT MAN 2 % (4-13); NEUTROPHILS ABSOLUTE MAN 1.77 K/mm3 (1.96-9.15); SEG NEUTROPHILS PERCENT MAN 17 % (41-73); TOTAL CELLS COUNTED 100
[2019-03-27 15:32] LABS: Alanine Aminotransfer (ALT/SGP 32 U/L (12-78); Albumin, Blood 3.8 g/dL (3.4-5.0); Albumin/Globulin Ratio 1.3 (0.8-1.8); Alk Phos 79 U/L (50-136); Anion Gap 10 mmol/L (6-16); Aspartate Aminotrans (AST/SGOT 20 U/L (12-37); Bilirubin, Total 0.3 mg/dL (0.1-1.0); Blood Urea Nitrogen 18 mg/dL (8-24); CO2, Blood 23 mmol/L (21-32); Calcium, Blood 8.3 mg/dL (8.5-10.1); Chloride, Blood 108 mmol/L (98-108); Glomerular Filtration Rate >60 (60-); Glucose, Blood 113 mg/dL (70-99); Potassium, Blood 4.3 mmol/L (3.5-5.5); Sodium, Blood 141 mmol/L (136-145); Total Protein, Blood 6.8 g/dL (6.4-8.2)
[2019-03-27 17:14] LABS: Digoxin (Lanoxin) 0.63 ug/mL (0.80-2.00)
== END 2019-03-27 16:49 | disposition home or self-care (01) ==
LOC: ER 13:09
PROVIDERS: Internal Medicine; Physician Assistant
DX: R42 Dizziness and giddiness (principal); I48.91 Unspecified atrial fibrillation; Z87.891 Personal history of nicotine dependence; Z85.46 Personal history of malignant neoplasm of prostate; Z88.8 Allergy status to other drugs, medicaments and biological substances; Z79.899 Other long term (current) drug therapy; Z79.01 Long term (current) use of anticoagulants; Z79.02 Long term (current) use of antithrombotics/antiplatelets; Z79.4 Long term (current) use of insulin
CPT/HCPCS: 36415; 70450; 80053; 80162; 85025; 85610; 93005; 93010; 99284-25

== ENCOUNTER 2019-10-24 14:05 | Emergency (ER) | payer MEDICARE, OTHER ==
[~2019-10-24] VITALS: Ht 182.9 cm; Wt 79.4 kg
[~2019-10-24 14:05] MED LIST changes: +TOUJEO SOL300 UNIT/2 SC
[2019-10-24 15:52] LABS: BASOPHILS ABSOLUTE AUTO 0.02 K/mm3 (0.00-0.23); BASOPHILS PERCENT AUTO 0 % (0-2); EOSINOPHILS ABSOLUTE AUTO 0.03 K/mm3 (0.00-0.68); EOSINOPHILS PERCENT AUTO 0 % (0-6); Hematocrit 26.1 % (37.0-53.0); Hemoglobin 8.3 g/dL (13.5-17.5); IMMATURE GRAN ABSOLUTE AUTO 0.11 K/mm3 (0.00-0.10); IMMATURE GRAN PERCENT AUTO 1 % (0-1); LYMPHOCYTES ABSOLUTE AUTO 6.64 K/mm3 (0.84-5.20); LYMPHOCYTES PERCENT AUTO 56 % (21-46); MONOCYTES ABSOLUTE AUTO 1.19 K/mm3 (0.16-1.47); MONOCYTES PERCENT AUTO 10 % (4-13); Mean Corpuscular HGB 33.9 pg (26.0-34.0); Mean Corpuscular HGB Conc 31.8 g/dL (31.5-36.5); Mean Corpuscular Volume 107 fL (80-100); Mean Platelet Volume 12.1 fL (9.1-12.4); NEUTROPHILS ABSOLUTE AUTO 3.85 K/mm3 (1.96-9.15); NEUTROPHILS PERCENT AUTO 32 % (41-73); Platelet Count 212 K/mm3 (150-400); RDW Standard Deviation 58.4 fL (35.1-46.3); Red Blood Cell Count 2.45 M/mm3 (4.30-5.90); White Blood Cell Count 11.84 K/mm3 (4.00-11.30)
[2019-10-24 16:10] LABS: Alanine Aminotransfer (ALT/SGP 20 U/L (12-78); Albumin, Blood 4.1 g/dL (3.4-5.0); Albumin/Globulin Ratio 1.1 (0.8-1.8); Alk Phos 35 U/L (50-136); Anion Gap 3 mmol/L (6-16); Aspartate Aminotrans (AST/SGOT 13 U/L (12-37); Bilirubin, Total 0.9 mg/dL (0.1-1.0); Blood Urea Nitrogen 25 mg/dL (8-24); Bun/Creatinine Ratio 12.8 (12.0-20.0); CO2, Blood 24 mmol/L (21-32); Chloride, Blood 110 mmol/L (98-108); Creatinine, Blood 1.96 mg/dL (0.60-1.20); Globulin, Blood 3.6 g/dL (2.2-4.0); Glomerular Filtration Rate 35 (60-); Glucose, Blood 140 mg/dL (70-99); Potassium, Blood 5.1 mmol/L (3.5-5.5); Sodium, Blood 137 mmol/L (136-145); Total Protein, Blood 7.7 g/dL (6.4-8.2); Troponin I <0.015 ng/mL (0.000-0.040)
[2019-10-24 20:04] LABS: Source, Urine Clean Catch
[2019-10-24 20:07] LABS: Bilirubin, Urine Neg (Neg); Blood, Urine 1+ (Neg); Glucose Qualitative, Urine Neg (Neg); Ketones, Urine 1+ (Neg); Leukocyte Esterase, Urine Neg (Neg); Nitrite, Urine Neg (Neg); Protein, Urine 3+ (Neg); Specific Gravity, Urine 1.005 (1.003-1.022); Urobilinogen, Urine NORM (Normal)
[2019-10-24 20:16] LABS: Appearance, Urine Clear (Clear); Color, Urine Yellow (P-Yellow)
[2019-10-24 20:18] LABS: Bacteria Not Seen /hpf; Red Blood Cells, Urine Not Seen /hpf (0-2); Squamous Epithelial Cells Rare /hpf (Few); White Blood Cells, Urine 0-2 /hpf (0-5)
== END 2019-10-24 21:36 | disposition home or self-care (01) ==
LOC: ER 14:05
PROVIDERS: Emergency Medicine; Student in an Organized Health Care Education/Training Program
DX: R06.00 Dyspnea, unspecified (principal); R35.0 Frequency of micturition; I48.91 Unspecified atrial fibrillation; I10 Essential (primary) hypertension; E11.9 Type 2 diabetes mellitus without complications; K21.9 Gastro-esophageal reflux disease without esophagitis; J44.9 Chronic obstructive pulmonary disease, unspecified; Z87.891 Personal history of nicotine dependence; Z79.899 Other long term (current) drug therapy; Z79.01 Long term (current) use of anticoagulants; Z79.4 Long term (current) use of insulin; Z88.8 Allergy status to other drugs, medicaments and biological substances
CPT/HCPCS: 71046; 80053; 81001; 83880; 84484; 85025; 87086; 93005; 93010; 99285-25; J7030

== ENCOUNTER 2020-01-13 00:25 | Day surgery (SDC) | payer MEDICARE, OTHER | END 2020-01-13 15:58 | disposition home or self-care (01) | LOC: ATC 00:25 | DX: I12.9 Hypertensive chronic kidney disease with stage 1 through stage 4 chronic kidney disease, or unspecified chronic kidney disease (principal); N18.4 Chronic kidney disease, stage 4 (severe); E11.22 Type 2 diabetes mellitus with diabetic chronic kidney disease; D63.1 Anemia in chronic kidney disease; N25.81 Secondary hyperparathyroidism of renal origin; E78.00 Pure hypercholesterolemia, unspecified; N28.1 Cyst of kidney, acquired; E55.9 Vitamin D deficiency, unspecified; Z79.84 Long term (current) use of oral hypoglycemic drugs; Z79.899 Other long term (current) drug therapy; Z79.02 Long term (current) use of antithrombotics/antiplatelets | CPT/HCPCS: 36415; 36430; 86850; 86900; 86901; 86923; 96374; J1940; J7050; P9016 ==

== ENCOUNTER → 2020-03-09 | Outpatient (CLI) | payer MEDICARE, OTHER ==
[2020-03-09 20:14] LABS: Percent Saturation 49.1 % (20.0-50.0)
[2020-03-09 20:30] LABS: Albumin, Blood 3.9 g/dL (3.4-5.0); Albumin/Globulin Ratio 1.6 (0.8-1.8); Bilirubin, Total 0.4 mg/dL (0.1-1.0); Bun/Creatinine Ratio 14.7 (12.0-20.0); Calcium, Blood 8.7 mg/dL (8.5-10.1); Creatinine, Blood 1.36 mg/dL (0.60-1.20); Globulin, Blood 2.5 g/dL (2.2-4.0); Potassium, Blood 4.7 mmol/L (3.5-5.5); Total Protein, Blood 6.4 g/dL (6.4-8.2)
== END | disposition home or self-care (01) ==
LOC: LAB SHORT 17:29 → LAB 17:29
PROVIDERS: Internal Medicine Hematology & Oncology
DX: N18.4 Chronic kidney disease, stage 4 (severe) (principal); D63.1 Anemia in chronic kidney disease; D50.0 Iron deficiency anemia secondary to blood loss (chronic)
CPT/HCPCS: 80053; 82728; 83540; 83550; 84100

== ENCOUNTER 2020-12-09 13:52 | Emergency (ER) | payer MEDICARE, OTHER ==
[~2020-12-09] VITALS: Ht 193 cm; Wt 111.1 kg
[2020-12-09 14:37] LABS: Hemoglobin 11.2 g/dL (13.5-17.5); Mean Corpuscular HGB 35.3 pg (26.0-34.0); Mean Corpuscular Volume 110 fL (80-100); Mean Platelet Volume 12.2 fL (9.1-12.4); NRBC ABSOLUTE 0.06 K/mm3 (0.00-0.02); NRBC Auto 0.2 /100 WBC (0.0-0.2); Platelet Count 105 K/mm3 (150-400); RDW Coefficient Variation 17.2 % (11.7-14.2); RDW Standard Deviation 68.3 fL (35.1-46.3); Red Blood Cell Count 3.17 M/mm3 (4.30-5.90); White Blood Cell Count 25.83 K/mm3 (4.00-11.30)
[2020-12-09 14:53] LABS: International Normalized Ratio 2.12; Prothrombin Time Results 21.9 Sec (9.7-11.5)
[2020-12-09 15:00] LABS: BASOPHILS PERCENT MAN 0 % (0-2); EOSINOPHILS ABSOLUTE MAN 0.25 K/mm3 (0.00-0.68); EOSINOPHILS PERCENT MAN 1 % (0-6); LYMPHOCYTES % ATYPICAL MANUAL 1 % (0-0); LYMPHOCYTES ABSOLUTE MAN 23.76 K/mm3 (0.84-5.20); LYMPHOCYTES PERCENT MAN 91 % (21-46); MONOCYTES PERCENT MAN 0 % (4-13); SEG NEUTROPHILS PERCENT MAN 7 % (41-73); TOTAL CELLS COUNTED 100
[2020-12-09 15:08] LABS: Albumin, Blood 3.7 g/dL (3.4-5.0); Albumin/Globulin Ratio 1.2 (0.8-1.8); Bilirubin, Total 0.7 mg/dL (0.1-1.0); Calcium, Blood 8.1 mg/dL (8.5-10.1); Creatinine, Blood 1.5 mg/dL (0.60-1.20); Globulin, Blood 3.2 g/dL (2.2-4.0); Potassium, Blood 5.3 mmol/L (3.5-5.5); Total Protein, Blood 6.9 g/dL (6.4-8.2)
[2020-12-09] MEDS ORDERED: Alph-E-Mixed400 UNIT PO (16:43)
[2020-12-09] MEDS ORDERED: HYDR100 PO (16:45)
[2020-12-09] MEDS ORDERED: TOUJEO MAX300 UNIT/2 (16:47)
[2020-12-09] MEDS ORDERED: BUME2 PO (16:49)
[2020-12-09] MEDS ORDERED: AMLO10 PO (16:54)
[2020-12-09] MEDS ORDERED: CITA20 PO (16:55)
[2020-12-09] MEDS ORDERED: METTREX2.5 PO (16:55)
== END 2020-12-09 19:40 | disposition home or self-care (01) ==
LOC: ER 13:52
PROVIDERS: Emergency Medicine
DX: R60.0 Localized edema (principal); J81.1 Chronic pulmonary edema; N18.9 Chronic kidney disease, unspecified; R42 Dizziness and giddiness; I13.0 Hypertensive heart and chronic kidney disease with heart failure and stage 1 through stage 4 chronic kidney disease, or unspecified chronic kidney disease; I50.42 Chronic combined systolic (congestive) and diastolic (congestive) heart failure; K21.9 Gastro-esophageal reflux disease without esophagitis; E11.22 Type 2 diabetes mellitus with diabetic chronic kidney disease; C95.90 Leukemia, unspecified not having achieved remission; J44.9 Chronic obstructive pulmonary disease, unspecified; Z88.8 Allergy status to other drugs, medicaments and biological substances; Z79.4 Long term (current) use of insulin; Z79.02 Long term (current) use of antithrombotics/antiplatelets; Z79.899 Other long term (current) drug therapy; Z85.46 Personal history of malignant neoplasm of prostate; Z91.14 Patient's other noncompliance with medication regimen
CPT/HCPCS: 36415; 71046; 71275; 80053; 83880; 85025; 85610; 93005; 93010; 93970; 99284-25; Q9967

== ENCOUNTER → 2020-12-13 | Outpatient (CLI) | payer MEDICARE, OTHER ==
[~2020-12-13] MED LIST changes: +Alph-E-Mixed400 UNIT PO; +BUME2 PO; +CITA20 PO; +HYDR100 PO; +METTREX2.5 PO; +TOUJEO MAX300 UNIT/2
[2020-12-13 17:59] LABS: Hematocrit 31.6 % (37.0-53.0); Hemoglobin 10.4 g/dL (13.5-17.5); Mean Corpuscular HGB Conc 32.9 g/dL (31.5-36.5); Mean Corpuscular Volume 106 fL (80-100); RDW Coefficient Variation 16.4 % (11.7-14.2); Red Blood Cell Count 2.97 M/mm3 (4.30-5.90)
[2020-12-13 18:00] LABS: Mean Platelet Volume 11.4 fL (9.1-12.4); Platelet Count 87 K/mm3 (150-400)
[2020-12-13 18:03] LABS: White Blood Cell Count 19.16 K/mm3 (4.00-11.30)
[2020-12-13 18:10] LABS: BASOPHILS PERCENT MAN 0 % (0-2); EOSINOPHILS PERCENT MAN 0 % (0-6); LYMPHOCYTES ABSOLUTE MAN 17.81 K/mm3 (0.84-5.20); LYMPHOCYTES PERCENT MAN 93 % (21-46); MONOCYTES PERCENT MAN 0 % (4-13); NEUTROPHILS ABSOLUTE MAN 1.34 K/mm3 (1.96-9.15); SEG NEUTROPHILS PERCENT MAN 7 % (41-73); TOTAL CELLS COUNTED 100
== END | disposition home or self-care (01) ==
LOC: LAB SHORT 17:56 → LAB 17:56
PROVIDERS: Physician Assistant
DX: R53.83 Other fatigue (principal)
CPT/HCPCS: 85025

== ENCOUNTER → 2020-12-14 | Outpatient (CLI) | payer MEDICARE, OTHER ==
[2020-12-14 16:00] LABS: BASOPHILS ABSOLUTE AUTO 0.03 K/mm3 (0.00-0.23); BASOPHILS PERCENT AUTO 0 % (0-2); EOSINOPHILS ABSOLUTE AUTO 0.24 K/mm3 (0.00-0.68); EOSINOPHILS PERCENT AUTO 1 % (0-6); Hematocrit 30.7 % (37.0-53.0); Hemoglobin 10.3 g/dL (13.5-17.5); Mean Corpuscular HGB 35.3 pg (26.0-34.0); Mean Corpuscular HGB Conc 33.6 g/dL (31.5-36.5); Mean Corpuscular Volume 105 fL (80-100); NRBC ABSOLUTE 0.03 K/mm3 (0.00-0.02); NRBC Auto 0.2 /100 WBC (0.0-0.2); RDW Coefficient Variation 16.1 % (11.7-14.2); RDW Standard Deviation 62.3 fL (35.1-46.3); Red Blood Cell Count 2.92 M/mm3 (4.30-5.90); White Blood Cell Count 17.61 K/mm3 (4.00-11.30)
[2020-12-14 16:03] LABS: IMMATURE GRAN ABSOLUTE AUTO 0.09 K/mm3 (0.00-0.10); IMMATURE GRAN PERCENT AUTO 1 % (0-1); LYMPHOCYTES ABSOLUTE AUTO 16.01 K/mm3 (0.84-5.20); LYMPHOCYTES PERCENT AUTO 91 % (21-46); MONOCYTES PERCENT AUTO 2 % (4-13); Mean Platelet Volume 11.5 fL (9.1-12.4); NEUTROPHILS ABSOLUTE AUTO 0.94 K/mm3 (1.96-9.15); NEUTROPHILS PERCENT AUTO 5 % (41-73); Platelet Count 83 K/mm3 (150-400)
== END ==
LOC: LAB SHORT 15:53 → LAB EV 15:53 → LAB 15:53
PROVIDERS: Physician Assistant
DX: D64.9 Anemia, unspecified (principal); R06.00 Dyspnea, unspecified
CPT/HCPCS: 83880; 85025

== ENCOUNTER 2021-02-11 15:19 | Emergency (ER) | payer MEDICARE, OTHER ==
[~2021-02-11] VITALS: Ht 193 cm; Wt 99.8 kg
[2021-02-11 16:18] LABS: Hematocrit 29.6 % (37.0-53.0); Hemoglobin 9.3 g/dL (13.5-17.5); Mean Corpuscular HGB 36.5 pg (26.0-34.0); Mean Corpuscular HGB Conc 31.4 g/dL (31.5-36.5); Mean Corpuscular Volume 116 fL (80-100); Mean Platelet Volume 12.6 fL (9.1-12.4); NRBC ABSOLUTE 0.05 K/mm3 (0.00-0.02); NRBC Auto 0.2 /100 WBC (0.0-0.2); Platelet Count 117 K/mm3 (150-400); RDW Coefficient Variation 21.9 % (11.7-14.2); RDW Standard Deviation 91.8 fL (35.1-46.3); Red Blood Cell Count 2.55 M/mm3 (4.30-5.90); White Blood Cell Count 31.21 K/mm3 (4.00-11.30)
[2021-02-11 16:41] LABS: International Normalized Ratio 1.8; Prothrombin Time Results 18.2 Sec (9.7-11.5)
[2021-02-11 16:42] LABS: Alanine Aminotransfer (ALT/SGP 20 U/L (12-78); Albumin, Blood 3.4 g/dL (3.4-5.0); Alk Phos 119 U/L (50-136); Anion Gap 8 mmol/L (6-16); Aspartate Aminotrans (AST/SGOT 29 U/L (12-37); Bilirubin, Total 0.7 mg/dL (0.1-1.0); Blood Urea Nitrogen 33 mg/dL (8-24); Bun/Creatinine Ratio 22.6 (12.0-20.0); CO2, Blood 23 mmol/L (21-32); Calcium, Blood 8.5 mg/dL (8.5-10.1); Chloride, Blood 104 mmol/L (98-108); Creatinine, Blood 1.46 mg/dL (0.60-1.20); Globulin, Blood 3.4 g/dL (2.2-4.0); Glomerular Filtration Rate 46 (60-); Glucose, Blood 108 mg/dL (70-99); Magnesium, Blood 2.6 mg/dL (1.6-2.4); Potassium, Blood 4.5 mmol/L (3.5-5.5); Sodium, Blood 135 mmol/L (136-145); Total Protein, Blood 6.8 g/dL (6.4-8.2); Troponin I <0.015 ng/mL (0.000-0.040)
[2021-02-11 16:47] LABS: BASOPHILS PERCENT MAN 0 % (0-2); EOSINOPHILS ABSOLUTE MAN 0.31 K/mm3 (0.00-0.68); EOSINOPHILS PERCENT MAN 1 % (0-6); LYMPHOCYTES ABSOLUTE MAN 29.33 K/mm3 (0.84-5.20); LYMPHOCYTES PERCENT MAN 94 % (21-46); MONOCYTES ABSOLUTE MAN 0.62 K/mm3 (0.16-1.47); MONOCYTES PERCENT MAN 2 % (4-13); NEUTROPHILS ABSOLUTE MAN 0.93 K/mm3 (1.96-9.15); SEG NEUTROPHILS PERCENT MAN 3 % (41-73); TOTAL CELLS COUNTED 100
== END 2021-02-11 18:11 | disposition home or self-care (01) ==
LOC: ER 15:19
PROVIDERS: Emergency Medicine
DX: R42 Dizziness and giddiness (principal); I11.0 Hypertensive heart disease with heart failure; I50.40 Unspecified combined systolic (congestive) and diastolic (congestive) heart failure; I48.91 Unspecified atrial fibrillation; E11.9 Type 2 diabetes mellitus without complications; K21.9 Gastro-esophageal reflux disease without esophagitis; J44.9 Chronic obstructive pulmonary disease, unspecified; Z87.891 Personal history of nicotine dependence; Z79.899 Other long term (current) drug therapy; Z79.02 Long term (current) use of antithrombotics/antiplatelets; Z79.01 Long term (current) use of anticoagulants; Z79.4 Long term (current) use of insulin
CPT/HCPCS: 36415; 80053; 83735; 84484; 85025; 85610; 93005; 93010; 96360; 99284-25; A9270; J7030

== ENCOUNTER 2021-03-07 13:28 | Emergency (ER) | payer MEDICARE, OTHER ==
[~2021-03-07] VITALS: Ht 193 cm; Wt 108.9 kg
[2021-03-07 15:10] LABS: Hematocrit 29.3 % (37.0-53.0); Hemoglobin 9.3 g/dL (13.5-17.5); Mean Corpuscular HGB 37.1 pg (26.0-34.0); Mean Corpuscular HGB Conc 31.7 g/dL (31.5-36.5); Mean Corpuscular Volume 117 fL (80-100); Mean Platelet Volume 11.9 fL (9.1-12.4); NRBC ABSOLUTE 0.09 K/mm3 (0.00-0.02); NRBC Auto 0.4 /100 WBC (0.0-0.2); Platelet Count 72 K/mm3 (150-400); RDW Coefficient Variation 19.6 % (11.7-14.2); RDW Standard Deviation 82.2 fL (35.1-46.3); Red Blood Cell Count 2.51 M/mm3 (4.30-5.90); White Blood Cell Count 23.49 K/mm3 (4.00-11.30)
[2021-03-07 15:30] LABS: BASOPHILS PERCENT MAN 0 % (0-2); EOSINOPHILS ABSOLUTE MAN 0.23 K/mm3 (0.00-0.68); EOSINOPHILS PERCENT MAN 1 % (0-6); LYMPHOCYTES % ATYPICAL MANUAL 2 % (0-0); LYMPHOCYTES ABSOLUTE MAN 19.96 K/mm3 (0.84-5.20); LYMPHOCYTES PERCENT MAN 83 % (21-46); MONOCYTES ABSOLUTE MAN 0.46 K/mm3 (0.16-1.47); MONOCYTES PERCENT MAN 2 % (4-13); NEUTROPHILS ABSOLUTE MAN 2.81 K/mm3 (1.96-9.15); SEG NEUTROPHILS PERCENT MAN 12 % (41-73); TOTAL CELLS COUNTED 100
[2021-03-07 15:33] LABS: Alanine Aminotransfer (ALT/SGP 23 U/L (12-78); Albumin, Blood 3.4 g/dL (3.4-5.0); Alk Phos 114 U/L (50-136); Anion Gap 5 mmol/L (6-16); Aspartate Aminotrans (AST/SGOT 26 U/L (12-37); Bilirubin, Total 0.8 mg/dL (0.1-1.0); Blood Urea Nitrogen 42 mg/dL (8-24); Bun/Creatinine Ratio 28.8 (12.0-20.0); CO2, Blood 25 mmol/L (21-32); Calcium, Blood 8.5 mg/dL (8.5-10.1); Chloride, Blood 108 mmol/L (98-108); Creatinine, Blood 1.46 mg/dL (0.60-1.20); Globulin, Blood 3.3 g/dL (2.2-4.0); Glomerular Filtration Rate 46 (60-); Glucose, Blood 113 mg/dL (70-99); Potassium, Blood 4.5 mmol/L (3.5-5.5); Sodium, Blood 138 mmol/L (136-145); Total Protein, Blood 6.7 g/dL (6.4-8.2); Troponin I <0.015 ng/mL (0.000-0.040)
[2021-03-07 18:58] LABS: International Normalized Ratio 3.17; Prothrombin Time Results 30.9 Sec (9.7-11.5)
[2021-03-07] MEDS ORDERED: LEVAQUIN750 MG PO ×2 (19:26→19:37)
== END 2021-03-07 21:25 | disposition home or self-care (01) ==
LOC: ER 13:28
PROVIDERS: Physician Assistant
DX: J18.9 Pneumonia, unspecified organism (principal); I48.91 Unspecified atrial fibrillation; C95.90 Leukemia, unspecified not having achieved remission; Z88.8 Allergy status to other drugs, medicaments and biological substances; Z79.899 Other long term (current) drug therapy; Z87.891 Personal history of nicotine dependence
CPT/HCPCS: 36415; 71046; 80053; 83605; 83880; 84484; 85025; 85610; 93005; 93010; 96365; 96366; 99285-25; J1956

== ENCOUNTER 2021-03-18 04:29 | Day surgery (SDC) | payer MEDICARE, OTHER ==
[~2021-03-18 04:29] MED LIST changes: +LEVAQUIN750 MG PO
[2021-03-18] MEDS ORDERED: LEVOFLOXACIN PO (09:36)
[2021-03-18] MEDS ORDERED: BASAGLAR K100 UNIT/8 (09:36)
[2021-03-18] MEDS ORDERED: AMLODIPINE BESY10 MG PO (09:37)
[2021-03-18] MEDS ORDERED: ANORO ELLIPTA1 EAC1 INH (09:37)
[2021-03-18] MEDS ORDERED: METHOTREXATE2.5 M6 PO (09:38)
[2021-03-18] MEDS ORDERED: JANTOVEN5 M2 PO (09:51)
[2021-03-18] MEDS ORDERED: LANOXIN125 MCG PO (09:51)
[2021-03-18] MEDS ORDERED: PLAVIX75 MG PO (09:52)
[2021-03-18] MEDS ORDERED: UBID100 PO (10:00)
[2021-03-18] MEDS ORDERED: OMEGA-3 + D SO1 EACH PO (10:01)
[2021-03-18] MEDS ORDERED: METF500 PO (10:01)
[2021-03-18] MEDS ORDERED: CYCL10 PO (10:01)
[2021-03-18] MEDS ORDERED: SPIR25 PO (10:02)
[2021-03-18] MEDS ORDERED: PANT40 PO (10:02)
[2021-03-18] MEDS ORDERED: ALBU90OI INH (10:02)
[2021-03-18] MEDS ORDERED: TOUJEO SOL300 UNIT/2 SC (10:03)
[2021-03-18] MEDS ORDERED: METO50ER PO (10:03)
[2021-03-18] MEDS ORDERED: VENL75ER PO (10:04)
--- NOTE | 2021-03-18 11:24 | NUR ---
PT'S INSPIRATORY CRACKLES TO LEFT BASE UNCHANGED FROM PRE TO POST TRANSFUSION.
== END 2021-03-18 11:30 | disposition home or self-care (01) ==
LOC: ATC 04:29
DX: C91.Z0 Other lymphoid leukemia not having achieved remission (principal); D64.9 Anemia, unspecified; I48.91 Unspecified atrial fibrillation; I10 Essential (primary) hypertension; E11.9 Type 2 diabetes mellitus without complications; Z87.891 Personal history of nicotine dependence; E78.5 Hyperlipidemia, unspecified; J44.9 Chronic obstructive pulmonary disease, unspecified; Z95.2 Presence of prosthetic heart valve; Z79.84 Long term (current) use of oral hypoglycemic drugs; Z79.01 Long term (current) use of anticoagulants; Z79.02 Long term (current) use of antithrombotics/antiplatelets
CPT/HCPCS: 36415; 36430; 86850; 86900; 86901; 86923; J7050; P9016

== ENCOUNTER 2021-04-02 08:06 | Emergency (ER) | payer MEDICARE, OTHER ==
[~2021-04-02] VITALS: Ht 177.8 cm; Wt 77.1 kg
[~2021-04-02 08:06] MED LIST changes: +ALBU90OI INH; +AMLODIPINE BESY10 MG PO; +ANORO ELLIPTA1 EAC1 INH; +BASAGLAR K100 UNIT/8; +CYCL10 PO; +JANTOVEN5 M2 PO; +LANOXIN125 MCG PO; +LEVOFLOXACIN PO; +METF500 PO; +METHOTREXATE2.5 M6 PO; +OMEGA-3 + D SO1 EACH PO; +PLAVIX75 MG PO; +UBID100 PO
== END 2021-04-02 09:10 | disposition home or self-care (01) ==
LOC: ER 08:06
DX: S90.411A Abrasion, right great toe, initial encounter (principal); I48.91 Unspecified atrial fibrillation; Z87.891 Personal history of nicotine dependence; W19.XXXA Unspecified fall, initial encounter
CPT/HCPCS: 99283

== ENCOUNTER 2021-04-04 18:12 | Inpatient (IN) | payer MEDICARE, OTHER ==
[~2021-04-04] VITALS: Ht 193 cm; Wt 113.4 kg
[2021-04-04 19:10] LABS: BASOPHILS ABSOLUTE AUTO 0.04 K/mm3 (0.00-0.23); BASOPHILS PERCENT AUTO 0 % (0-2); EOSINOPHILS ABSOLUTE AUTO 0.13 K/mm3 (0.00-0.68); EOSINOPHILS PERCENT AUTO 1 % (0-6); Hematocrit 21.3 % (37.0-53.0); Hemoglobin 7.2 g/dL (13.5-17.5); Mean Corpuscular HGB 38.1 pg (26.0-34.0); Mean Corpuscular HGB Conc 33.8 g/dL (31.5-36.5); Mean Corpuscular Volume 113 fL (80-100); NRBC ABSOLUTE 0.02 K/mm3 (0.00-0.02); NRBC Auto 0.1 /100 WBC (0.0-0.2); RDW Coefficient Variation 20.2 % (11.7-14.2); RDW Standard Deviation 76.3 fL (35.1-46.3); Red Blood Cell Count 1.89 M/mm3 (4.30-5.90); White Blood Cell Count 24.66 K/mm3 (4.00-11.30)
[2021-04-04 19:24] LABS: IMMATURE GRAN ABSOLUTE AUTO 0.15 K/mm3 (0.00-0.10); IMMATURE GRAN PERCENT AUTO 1 % (0-1); LYMPHOCYTES ABSOLUTE AUTO 22.32 K/mm3 (0.84-5.20); LYMPHOCYTES PERCENT AUTO 91 % (21-46); MONOCYTES ABSOLUTE AUTO 0.11 K/mm3 (0.16-1.47); MONOCYTES PERCENT AUTO 0 % (4-13); Mean Platelet Volume 14.5 fL (9.1-12.4); NEUTROPHILS ABSOLUTE AUTO 1.91 K/mm3 (1.96-9.15); NEUTROPHILS PERCENT AUTO 8 % (41-73)
[2021-04-04 19:27] LABS: International Normalized Ratio 5.88
[2021-04-04 19:28] LABS: Platelet Count 39 K/mm3 (150-400)
[2021-04-04 19:29] LABS: Albumin, Blood 3.3 g/dL (3.4-5.0); Bun/Creatinine Ratio 41.4 (12.0-20.0); Calcium, Blood 8.4 mg/dL (8.5-10.1); Creatinine, Blood 2.51 mg/dL (0.60-1.20); Globulin, Blood 3.2 g/dL (2.2-4.0); Potassium, Blood 3.7 mmol/L (3.5-5.5); Total Protein, Blood 6.5 g/dL (6.4-8.2)
[2021-04-04 19:59] LABS: Troponin I <0.015 ng/mL (0.000-0.040)
[2021-04-04 22:20] LABS: Magnesium, Blood 2.5 mg/dL (1.6-2.4)
[2021-04-04 22:25] LABS: Hematocrit 20.8 % (37.0-53.0)
[2021-04-04 22:26] LABS: Hemoglobin 6.7 g/dL (13.5-17.5)
[2021-04-04 23:01] LABS: Source, Urine Catheter
[2021-04-04 23:01] LABS: Digoxin (Lanoxin) 1.21 ug/mL (0.80-2.00)
[2021-04-04 23:03] LABS: Bilirubin, Urine Neg (Neg); Blood, Urine Neg (Neg); Glucose Qualitative, Urine Neg (Neg); Ketones, Urine Neg (Neg); Leukocyte Esterase, Urine Neg (Neg); Nitrite, Urine Neg (Neg); Protein, Urine 1+ (Neg); Specific Gravity, Urine 1.015 (1.003-1.022); Urobilinogen, Urine NORM (Normal)
[2021-04-04 23:24] LABS: Appearance, Urine Clear (Clear); Color, Urine Yellow (P-Yellow)
[2021-04-05 02:26] LABS: Influenza A, PCR NEGATIVE (NEGATIVE); Influenza B, PCR NEGATIVE (NEGATIVE); Resp Syncytial Virus, PCR NEGATIVE (NEGATIVE); SARS-Cov-2 (COVID-19) PCR, MMC NEGATIVE (NEGATIVE)
[2021-04-05 04:39] LABS: Hematocrit 23.6 % (37.0-53.0); Hemoglobin 8.1 g/dL (13.5-17.5); Mean Corpuscular HGB 36.2 pg (26.0-34.0); Mean Corpuscular HGB Conc 34.3 g/dL (31.5-36.5); NRBC ABSOLUTE 0.04 K/mm3 (0.00-0.02); NRBC Auto 0.2 /100 WBC (0.0-0.2); RDW Coefficient Variation 23.1 % (11.7-14.2); RDW Standard Deviation 80.6 fL (35.1-46.3); Red Blood Cell Count 2.24 M/mm3 (4.30-5.90)
[2021-04-05 04:45] LABS: Mean Corpuscular Volume 105 fL (80-100)
[2021-04-05 04:46] LABS: Platelet Count 43 K/mm3 (150-400)
[2021-04-05 05:52] LABS: Albumin, Blood 3.5 g/dL (3.4-5.0); Albumin/Globulin Ratio 1.2 (0.8-1.8); Bilirubin, Total 1.5 mg/dL (0.1-1.0); Bun/Creatinine Ratio 45.8 (12.0-20.0); Calcium, Blood 8.7 mg/dL (8.5-10.1); Creatinine, Blood 2.4 mg/dL (0.60-1.20); Globulin, Blood 2.9 g/dL (2.2-4.0); Potassium, Blood 3.6 mmol/L (3.5-5.5); Total Protein, Blood 6.4 g/dL (6.4-8.2)
[2021-04-05 06:20] LABS: BAND PERCENT MAN 1 % (0-8); BASOPHILS PERCENT MAN 0 % (0-2); EOSINOPHILS ABSOLUTE MAN 0.23 K/mm3 (0.00-0.68); EOSINOPHILS PERCENT MAN 1 % (0-6); LYMPHOCYTES ABSOLUTE MAN 18.09 K/mm3 (0.84-5.20); LYMPHOCYTES PERCENT MAN 78 % (21-46); MONOCYTES ABSOLUTE MAN 0.46 K/mm3 (0.16-1.47); MONOCYTES PERCENT MAN 2 % (4-13); SEG NEUTROPHILS PERCENT MAN 18 % (41-73); TOTAL CELLS COUNTED 100
--- NOTE | 2021-04-05 06:53 | NUR ---
very confused from arrival to unit from ED. unable to answer questions or follow instructions. Speech very mumbled and difficult to understand. Labs better after transfusions, will report and monitor later. resting at this time. restraints remain in place after becoming very confused and started pulling out IVs and pulling off monior wires.
--- NOTE | 2021-04-05 07:40 | NUR ---
DR. DUMONT BY TO SEE PT. WANTS TO TITRATE DOPAMINE DOWN IF POSSIBLE.
[2021-04-05 08:27] LABS: International Normalized Ratio 1.83; Prothrombin Time Results 18.5 Sec (9.7-11.5)
--- NOTE | 2021-04-05 09:00 | NUR ---
CALLED DR. DUMONT ABOUT PT HAVING A LOT OF ECTOPY ON THE MONITOR AND AFTER DECREASING DOPAMINE TO 2.5MCG HR IN THE 40'S-50'S. DR. DUMONT WILL BE PLACING TEMP PACER TODAY.
[2021-04-05 10:53] LABS: Hematocrit 23.6 % (37.0-53.0)
--- NOTE | 2021-04-05 11:44 | NUR ---
Case Conference Note Spoke with singeing torch operator Roby, MIKIE Cantrell, Dr Wei, and discussed case. Called and spoke with Pt's spouse Hermes with Pt's daughter Ricardo on speaker phone. Reviewed plan of care and answered questions. Family agreeable to discuss Pt's wishes regarding code status. Educated on life sustaining treatments including risk factors and implications of CPR. Family reports Pt would not want CPR or to be intubated. Family reports Pt's wishes are for DNR. Offered therapeutic listening and validated concerns. Family express appreciation and report no other concerns at this time. Placed order for DNR per V/O from Dr Wei. Palliative Care will remain available.
--- NOTE | 2021-04-05 13:46 | NUR ---
PT BACK TO ROOM AFTER TEMP PACER PLACEMENT AT 1335. TEMP PACER TO R SUBCLAVIAN. CENTRAL LINE WAS REMOVED DURING PROCEDURE. RATE IS 60, OUTPUT 10, SENSE 2. UNABLE TO EVAL MARKINGS ON PACER LINE DUE TO IT BEING COILED UNDER CLEAR DRESSING THAT WAS PLACED BY SOCIAL PSYCHOLOGIST. PT IS IN RESTRAINTS TO PREVENT PULLING ON LINES. PT IS AWAKE AND SPEECH IS A LITTLE MORE CLEAR BUT IS STILL CONFUSED. DOPAMINE STILL AT 5MCG, WILL ATTEMPT TO TITRATE OFF NOW THAT PACER IS IN PLACE.
[2021-04-05] MEDS ORDERED: HYDR100 PO (15:40)
[2021-04-05] MEDS ORDERED: BUME2 PO (15:42)
[2021-04-05] MEDS ORDERED: PREG75 PO (15:43)
[2021-04-05] MEDS ORDERED: CELEXA40 M1 PO (15:44)
[2021-04-05] MEDS ORDERED: POTA10T PO (15:46)
--- NOTE | 2021-04-05 16:03 | NUR ---
Received call from chiller operator Roby reporting Pt's daughters have arrived and are requestiing Palliative Care visit. Pt resting in bed with his eyes closed. Primary RN Tamia and both daughters at bedside. Offered therapeutic listening. Dr Wei in to examine Pt. Dr Wei reviews plan of care with family and discusses the importance of developing multiple plans for the future pending Pt's hospital recovery. Family reports Pt's alcoholism and provides list of home medications. This RN remained behind to answer further questions. Family express appreciation and report no other concerns at this time. Palliative Care will remain available.
[2021-04-05 16:15] LABS: Hemoglobin 7.6 g/dL (13.5-17.5)
--- NOTE | 2021-04-05 18:22 | NUR ---
SUMMARY PT GOT A TEMP PACER TODAY. AFTER PACER PLACEMENT SPEECH WAS A LITTLE MORE CLEAR. PT WAS ABLE TO SAY HE WAS IN PAIN, DILAUDID GIVEN. SINCE DILAUDID PT HAS BEEN SLEEPING. PACER SET AT 60BPM, OUTPUT 10, SENSE 2. WENT TO CT PER DR. TOMPKINS ORDERS. PACEMAKER APPEARS IN SAME POSITION ALTHOUGH UNABLE TO SEE MARKINGS ON LINE TO ASSESS DEPTH DUE TO DRESSING PLACED IN FIRST RESPONDER. AFTER CT NOTICED PT HAS A SKIN TEAR TO LFA. CLEANED WOUND AND DRESSED WITH NON ADHERENT DRESSING. PT IS RECEIVING BANANA BAG NOW. DAUGHTERS THAT CAME TO SEE HIM TODAY SAY HE DRINKS SEVERAL VODKA DRINKS A DAY. NO SIGN OF BLEEDING TODAY.
[2021-04-06 03:56] LABS: International Normalized Ratio 1.38; Prothrombin Time Results 14.2 Sec (9.7-11.5)
--- NOTE | 2021-04-06 06:17 | NUR ---
END OF SHIFT VINAY: PATIENT SLEPT MOST OF SHIFT FROM [id number], WAKING UP SLIGHTLY FOR TURNS AND ASSESSMENTS ONLY. HE WAS VERY DROWSY BUT WOKE UP TO VERBAL STIMULATION. I WOKE HIM UP GOOD AT 0400 TO HAVE A CONVERSATION OUTSIDE OF THE CPAP AND HE WAS MUCH MORE AWARE OF THE SITUATION, ASKING ABOUT HIS , AND VERY POLITE. I EXPLAINED WHAT HAPPENED DURING THE DAY YESTERDAY AND HE NOW UNDERSTANDS MORE. HE WAS TELLING ME HOW HE SHOULD BE IN [place] RIGHT NOW BEING A "SNOWBIRD." STATED THAT HE WANTED TO CONTINUE SLEEPING UNTIL MORNING. CPAP ON ALL NIGHT. TEMP PACEMAKER WORKING CORRECTLY WITH RATE AT 60. HE HAS HAD 2 SMALL RUNS OF VTACH BUT WERE OVER QUICK. DUVAL INTACT. RESTRAITNS REMAIN ON D/T PATIENT COMFORTABLE WITH THEM ON SO HE DOESN'T PULL OUT ANYTHING IMPORTANT. SAYS HE CAN BE A "WILD SLEEPER." SHOULD BE ABLE TO D/C IN THE MORNING IF STILL ALERT
--- NOTE | 2021-04-06 08:30 | NUR ---
INITIAL ASSESSMENT PATIENT SLEEPING SOUNDLY UPON ENTERING ROOM. PATIENT WOKE TO VERBAL STIMULI. PATIENT CHANGED FROM CPAP TO 3 L NC, WHICH HE STATES HE WEARS AT HOME DURING DAY. PATIENT ORIENTED TO FAMILY, TOWN, SELF, FOLLOWING DIRECTIONS. PATIENT DOES HAVE EXPRESSIVE APHASIA AT TIMES. SPEECH SLURRED/ GARBLED AND DIFFICULT TO UNDERSTAND. PATIENT ASKED IF HE USES ANYTHING TO HELP HIM WALK AT HOME AND HE REPLIED "A LADDER". PATIENT HAS FLAT AFFECT BUT IS COOPERATIVE. LLE APPEARS SLIGHTLY WEAKER THAN RLE. BUES SYMMETRICAL IN STRENGTH. NO DROOPING AT CORNERS OF MOUTH NOTED. CIWA SCORE OF 7. PATIENT HAS TEMP OF 100.0 DEGREES FAHRENHEIT. PATIENT STATES THAT LOWER ABDOMEN HURTS SOME BUT THAT PAIN IS MANAGEABLE AT THIS TIME. LUNGS CLEAR IN UPPER LOBES. INSPIRATORY CRACKLES NOTED IN LOWER LOBES. PATIENT A.FIB/ OCCASIONALLY PACED. TEMP PACER TO R SC; RATE OF 60, OUTPUT OF 10, SENSE OF 2. HR 50S TO 70S. SBP LOW 100S TO 120S. SCDS IN PLACE. 1+ EDEMA NOTED TO BLES. NO RECENT BM DOCUMENTED. ABDOMEN MILDLY DISTENDED, FIRM, WITH NORMOACTIVE BS NOTED. DUVAL IN PLACE DRAINING YELLOW COLORED URINE. SCATTERED BRUISES T/O BODY. SCABS TO TOES. SKIN TEAR NOTED TO R FA. GROIN/ NATI AREA REDDENED AND MOIST; NYSTATIN CREAM BEING APPLIED. PROTONIX INFUSING AT 10 MLS/ HOUR. DOPAMINE INFUSING AT 1 MCG/ KG/ MINUTE. BED LOW, CALL LIGHT IN REACH. WILL CONTINUE TO MONITOR PATIENT FREQUENTLY THROUGHOUT SHIFT.
--- NOTE | 2021-04-06 08:58 | NUR ---
DR. TOMPKINS IN TO SEE PATIENT. INFORMED THAT NO AM LABS ORDERED. INFORMED THAT PATIENT HAS DM2 AND NO ORDERS. DR. TOMPKINS STATED HE WOULD PLACE ORDERS. DR. DUMONT HERE TO SEE PATIENT AT SAME TIME. DR. DUMONT CHANGED TEMP PACER SETTINGS TO RATE OF 45, OUTPUT OF 20 [address] SENSE OF 2. DR. DUMONT STATES THAT HE WILL CHECK UP ON PATIENT LATER IN DAY AND THEN DETERMINE NEXT PLAN.
[2021-04-06 09:42] LABS: Hemoglobin 7.8 g/dL (13.5-17.5); Mean Corpuscular HGB 35.8 pg (26.0-34.0); Mean Corpuscular HGB Conc 32.5 g/dL (31.5-36.5); NRBC ABSOLUTE 0.03 K/mm3 (0.00-0.02); NRBC Auto 0.1 /100 WBC (0.0-0.2); RDW Coefficient Variation 22.8 % (11.7-14.2); RDW Standard Deviation 86.2 fL (35.1-46.3); Red Blood Cell Count 2.18 M/mm3 (4.30-5.90); White Blood Cell Count 22.76 K/mm3 (4.00-11.30)
--- NOTE | 2021-04-06 09:43 | NUR ---
PATIENT ASSISTED IN CALLING .
[2021-04-06 09:47] LABS: Mean Corpuscular Volume 110 fL (80-100); Mean Platelet Volume 14.3 fL (9.1-12.4); Platelet Count 50 K/mm3 (150-400)
[2021-04-06 10:14] LABS: Albumin, Blood 3.3 g/dL (3.4-5.0); Albumin/Globulin Ratio 1.1 (0.8-1.8); Bilirubin, Total 1.4 mg/dL (0.1-1.0); Bun/Creatinine Ratio 46.8 (12.0-20.0); Creatinine, Blood 2.2 mg/dL (0.60-1.20); Globulin, Blood 3.1 g/dL (2.2-4.0); Magnesium, Blood 2.7 mg/dL (1.6-2.4); Phosphorus, Blood 4.8 mg/dL (2.5-4.9); Potassium, Blood 3.8 mmol/L (3.5-5.5); Total Protein, Blood 6.4 g/dL (6.4-8.2)
[2021-04-06 10:15] LABS: BASOPHILS PERCENT MAN 0 % (0-2); EOSINOPHILS ABSOLUTE MAN 0.22 K/mm3 (0.00-0.68); EOSINOPHILS PERCENT MAN 1 % (0-6); LYMPHOCYTES PERCENT MAN 80 % (21-46); MONOCYTES ABSOLUTE MAN 0.22 K/mm3 (0.16-1.47); MONOCYTES PERCENT MAN 1 % (4-13); MYELOCYTE ABSOLUTE MAN 0.22 K/mm3 (0.00-0.00); MYELOCYTE PERCENT MAN 1 % (0-0); NEUTROPHILS ABSOLUTE MAN 3.86 K/mm3 (1.96-9.15); SEG NEUTROPHILS PERCENT MAN 17 % (41-73); TOTAL CELLS COUNTED 100
--- NOTE | 2021-04-06 11:07 | NUR ---
DR. TOMPKINS INFORMED THAT SBP 83 AND MAP 55. INFORMED THAT DR. DUMONT STATED, FROM HIS SIDE OF THINGS, THAT DOPAMINE DRIP COULD BE RESTARTED FOR BP OR PATIENT COULD HAVE BOLUS. DR. TOMPKINS STATED TO GIVE 500 CC NS BOLUS AND IF BP NOT IMPROVED THEN RESTART DOPAMINE DRIP.
--- NOTE | 2021-04-06 11:46 | NUR ---
Pt resting in bed and is pleasantly confused. Pt A&OX2 and engages in nonsensical conversation. Pt appears comfortable with no S/S of distress at this time. Spoke with Primary RN Jessica and discussed case. Palliative Care will remain available.
--- NOTE | 2021-04-06 12:00 | NUR ---
PATIENT HAS TEMP OF 101.4 DEGREES FAHRENHEIT. PATIENT HAS NO COMPLAINTS OF PAIN. TEMP PACER SETTINGS: RATE OF 45, OUTPUT OF 20, SENSE OF 2. HR 60S TO 70S. SBP 70S TO 1-TEENS. DOPAMINE DRIP AT 2 MCG/ KG/ MINUTE. 500 CC NS BOLUS INFUSING. NO OTHER ACUTE CHANGES TO NOTE ON AT THIS TIME. BED LOW, CALL LIGHT IN REACH.
[2021-04-06 12:52] LABS: Hematocrit 22.6 % (37.0-53.0); Hemoglobin 7.5 g/dL (13.5-17.5)
--- NOTE | 2021-04-06 16:01 | NUR ---
PATIENT HAS TEMP OF 100.4 DEGREES FAHRENHEIT. PATIENT MORE LETHARGIC THAN EARLIER IN DAY. CIWA SCORE OF 5. HR 60S TO 80S. SBP LOW 100S TO 130S. DOPAMINE ON SB. BLOOD PRESSURE LOWER IN R ARM THAN IN L ARM. PATIENT RECEIVED COMPLETE BED BATH. NO OTHER ACUTE CHANGES TO NOTE ON AT THIS TIME. WILL CONTINUE TO MONITOR.
--- NOTE | 2021-04-06 17:43 | NUR ---
SHIFT SUMMARY PATIENT NAPPED ON AND OFF THROUGHOUT SHIFT. PATIENT REMAINED CONFUSED AND DIFFICULT TO UNDERSTAND AT TIMES. EXPRESSIVE APHASHIA NOTED. L LEG SLIGHTLY WEAKER THAN R LEG. PATIENT REMAINED ORIENTED TO SELF, FAMILY, FOLLOWING DIRECTIONS, AND YEAR. CIWA SCORES 5 TO 7. PATIENT HAD TMAX OF 101.6 DEGREES FAHRENHEIT. PATIENT COMPLAINED OT OF PAIN IN LOWER ABDOMEN. PATIENT REMAINED ON 3 L NC ALL DAY. PATIENT STATED THAT HE WEARS 3 L NC AT HOME BUT PATIENT'S STATES THAT HE ONLY WEARS CPAP AT HS AT HOME. PATIENT CONTINUED TO HAVE INSPIRATORY CRACKLES IN LOWER LOBES. PATIENT REMAINED A.FIB AND PACED. HR 50S TO 80S. SBP 70S TO 150S. PATIENT RECEIVED 500 CC NS BOLUS THIS SHIFT. DOPAMINE RANGED FROM SB TO 2 MCG/ KG/ MINUTE; CURRENTLY ON SB. TEMP PACER SETTINGS CHANGED THIS AM FROM RATE OF 60, OUTPUT OF 10 AND SENSE OF 2 TO RATE OF 45, OUTPUT OF 20 AND SENSE OF 2. BPS REMAINED SIGNIFICANTLY LOWER IN R ARM THAN IN L ARM. SCDS IN PLACE. NO BM THIS SHIFT. PATIENT ATE FAIRLY WELL AT EACH MEAL. PATIENT DOES NEED ASSISTANCE WITH EATING. DUVAL DRAINED ADEQUATE AMOUNT OF YELLOW COLORED URINE. NYSTATIN CREAM CHANGED TO POWDER THIS SHIFT GROIN/ NATI AREA VERY MOIST. PATIENT RECEIVED COMPLETE BED BATH. PROTONIX REMAINS AT 10 MLS/ HOUR. PATIENT RECEIVED [address]IFT[address] DUMONT'S PLAN IS TO TURN OFF PACER IN AM. AND DAUGHTER CAME TO VISIT TODAY. NO COMPLAINTS OF PAIN OR DISCOMFORT AT THIS TIME. BED LOW, CALL LIGHT IN REACH. REPORT WILL BE GIVEN TO ASSUMING NAIL FEEDER NURSE SHORTLY.
--- NOTE | 2021-04-06 19:15 | NUR ---
ASSUMPTION OF CARE: PT HAS TEMP PACER TO SUBCLAVIAN SET AT RATE OF 45. BP WNL. PT IS TALKING BUT CONFUSED. HR IN THE 60S AT TIME OF ASSESSMENT. PT IS ON 3LNC. DOPAMINE INFUSION OFF AT THIS TIME. NO S/S OF ACUTE DISTRESS NOTED AT TIME OF INITIAL ASSESSMENT.
[2021-04-07 06:00] LABS: International Normalized Ratio 1.41; Prothrombin Time Results 14.5 Sec (9.7-11.5)
[2021-04-07 06:15] LABS: Albumin, Blood 2.9 g/dL (3.4-5.0); Albumin/Globulin Ratio 1.1 (0.8-1.8); Bilirubin, Total 1.3 mg/dL (0.1-1.0); Calcium, Blood 8.4 mg/dL (8.5-10.1); Creatinine, Blood 2.17 mg/dL (0.60-1.20); Globulin, Blood 2.6 g/dL (2.2-4.0); Magnesium, Blood 2.7 mg/dL (1.6-2.4); Potassium, Blood 3.7 mmol/L (3.5-5.5); Total Protein, Blood 5.5 g/dL (6.4-8.2)
[2021-04-07 06:54] LABS: BASOPHILS ABSOLUTE AUTO 0.04 K/mm3 (0.00-0.23); BASOPHILS PERCENT AUTO 0 % (0-2); EOSINOPHILS ABSOLUTE AUTO 0.12 K/mm3 (0.00-0.68); EOSINOPHILS PERCENT AUTO 1 % (0-6); Hemoglobin 6.9 g/dL (13.5-17.5); Mean Corpuscular HGB 35.9 pg (26.0-34.0); Mean Corpuscular HGB Conc 32.9 g/dL (31.5-36.5); Mean Corpuscular Volume 109 fL (80-100); NRBC ABSOLUTE 0.04 K/mm3 (0.00-0.02); NRBC Auto 0.2 /100 WBC (0.0-0.2); RDW Coefficient Variation 21.9 % (11.7-14.2); RDW Standard Deviation 80.2 fL (35.1-46.3); Red Blood Cell Count 1.92 M/mm3 (4.30-5.90); White Blood Cell Count 19.79 K/mm3 (4.00-11.30)
--- NOTE | 2021-04-07 07:30 | NUR ---
ASSUMED CARE: PT RESTING IN BED, NO C/O CHEST PAIN OR DIZZINESS. TEMP PACER NOTED TO RIGHT CHEST WITH NO SIGN OF BLEEDING OR SWELLING, NO CREPITUS. RHYTHM IS IRREGULAR WITH PACER SPIKES AND PVCS NOTED. PACER SET AT 80. DR TOMPKINS CAME TO SEE PT, AWAITING DR DUMONT'S RECOMMENDATIONS.
[2021-04-07 08:01] LABS: BASOPHILS ABSOLUTE AUTO 0.03 K/mm3 (0.00-0.23); BASOPHILS PERCENT AUTO 0 % (0-2); EOSINOPHILS PERCENT AUTO 1 % (0-6); Hematocrit 20.5 % (37.0-53.0); Hemoglobin 6.7 g/dL (13.5-17.5); IMMATURE GRAN ABSOLUTE AUTO 0.19 K/mm3 (0.00-0.10); IMMATURE GRAN PERCENT AUTO 1 % (0-1); LYMPHOCYTES PERCENT AUTO 90 % (21-46); MONOCYTES ABSOLUTE AUTO 0.32 K/mm3 (0.16-1.47); MONOCYTES PERCENT AUTO 2 % (4-13); Mean Corpuscular HGB 35.8 pg (26.0-34.0); Mean Corpuscular HGB Conc 32.7 g/dL (31.5-36.5); Mean Corpuscular Volume 110 fL (80-100); NEUTROPHILS ABSOLUTE AUTO 1.32 K/mm3 (1.96-9.15); NEUTROPHILS PERCENT AUTO 7 % (41-73); NRBC ABSOLUTE 0.03 K/mm3 (0.00-0.02); NRBC Auto 0.2 /100 WBC (0.0-0.2); RDW Coefficient Variation 22.3 % (11.7-14.2); RDW Standard Deviation 80.3 fL (35.1-46.3); Red Blood Cell Count 1.87 M/mm3 (4.30-5.90); White Blood Cell Count 19.36 K/mm3 (4.00-11.30)
[2021-04-07 08:25] LABS: IMMATURE GRAN ABSOLUTE AUTO 0.19 K/mm3 (0.00-0.10); IMMATURE GRAN PERCENT AUTO 1 % (0-1); LYMPHOCYTES ABSOLUTE AUTO 17.99 K/mm3 (0.84-5.20); LYMPHOCYTES PERCENT AUTO 91 % (21-46); MONOCYTES PERCENT AUTO 2 % (4-13); NEUTROPHILS ABSOLUTE AUTO 1.15 K/mm3 (1.96-9.15); NEUTROPHILS PERCENT AUTO 6 % (41-73); Platelet Count 39 K/mm3 (150-400)
[2021-04-07 08:33] LABS: Mean Platelet Volume 13.3 fL (9.1-12.4); Platelet Count 40 K/mm3 (150-400)
--- NOTE | 2021-04-07 09:00 | NUR ---
DR DUMONT CAME TO SEE PT AND STOPPED PACER. PT'S HR CURRENTLY IN 60S, BP STABLE AT THIS TIME. STATES PT IS OK TO EAT AND WILL CHECK BACK THIS AFTERNOON TO DETERMINE IF PT TOLERATED PACER OFF THIS AFTERNOON.
--- NOTE | 2021-04-07 09:31 | NUR ---
CALL TO DR TOMPKINS WITH CRITICAL LAB RESULTS. ORDERED UNITS OF PRBCS AND PLATELETS. 1ST UNIT PLATELETS RUNNING AT THIS TIME. DR AWARE OF DR DUMONT'S PLAN. PT DENIES NEEDS AT THIS TIME.
--- NOTE | 2021-04-07 09:37 | NUR ---
REVIEWED OPEN CUT EXAMINER DOCUMENTATION. THIS RN FEELS LUNGS WERE CLEAR WITH SOME COARSENESS TO BASES. SKIN WITH REDNESS AND SWELLING TO GROIN.
--- NOTE | 2021-04-07 11:23 | NUR ---
Pt resting in bed and appears more alert today. Pt A&OX2/3 and appears to struggle with some confusion. He also appears to struggle with finding correct words to respond with. Pt denies pain at this time. Pt does report mild hallucinations when closing his eyes. He states seein 3 people in the room when he closes his eyes. Pt expresses appreciation of visit and reports no other concerns at this time. Spoke with Primary RN Jackie and discussed case. Palliative Care will remain available.
--- NOTE | 2021-04-07 13:20 | NUR ---
DR DUMONT CAME TO SEE PT AND REMOVED TEMP PACER BUT LEFT SHEATH IN PLACE. THIS RN CLEANED SITE AND REPLACED DRESSING. COMMUTATOR ASSEMBLER AWARE THAT SHEATH IS IN PLACE AND RECOMMENDS LEAVING IT IN PLACE WHILE IN ICU DUE TO PT HAVING DIFFICULT IV ACCESS. DR WALDEN CAME TO SEE PT AND INSTRUCTS FOR NPO AFTER MN FOR PROCEDURE TOMORROW. PT'S DAUGHTER SHAHEED CALLED AND HAS BEEN GIVEN UPDATE. PT'S SECOND UNIT OF PLATELETS RUNNING AT THIS TIME. NO ACUTE NEEDS OR CONCERNS.
--- NOTE | 2021-04-07 18:22 | NUR ---
SHIFT SUMMARY: PT CONFUSED AT TIMES. ALERT MOST OF SHIFT. TEMP PACER REMOVED BUT SHEATH IS STILL IN PLACE FOR FURTHER ACCESS AT THIS TIME. PT RECIEVED 2 UNITS PLATELETS, RECIEVING 1 UNIT BLOOD AND 1 MORE UNIT BLOOD ORDERED. PLAN FOR EGD TOMORROW. PT'S DAUGHTER WAS ASSISTING WITH DINNER AND PT STARTED COUGHING. DAUGHTER AWARE THAT WE ARE NOW MAKING PT NPO TO PREVENT ASPIRATION AND WILL DO A SWALLOW EVALUATION AFTER PT'S PROCEDURE TOMORROW. PT RESTING AT THIS TIME. NO FURTHER NEEDS AT THIS TIME.
[2021-04-08 05:05] LABS: BASOPHILS ABSOLUTE AUTO 0.03 K/mm3 (0.00-0.23); BASOPHILS PERCENT AUTO 0 % (0-2); EOSINOPHILS PERCENT AUTO 1 % (0-6); Hematocrit 24.7 % (37.0-53.0); Hemoglobin 8.3 g/dL (13.5-17.5); Mean Corpuscular HGB 35.2 pg (26.0-34.0); Mean Corpuscular HGB Conc 33.6 g/dL (31.5-36.5); NRBC ABSOLUTE 0.04 K/mm3 (0.00-0.02); NRBC Auto 0.2 /100 WBC (0.0-0.2); Platelet Count 53 K/mm3 (150-400); RDW Coefficient Variation 22.3 % (11.7-14.2); RDW Standard Deviation 76.2 fL (35.1-46.3); Red Blood Cell Count 2.36 M/mm3 (4.30-5.90); White Blood Cell Count 20.66 K/mm3 (4.00-11.30)
[2021-04-08 05:11] LABS: IMMATURE GRAN ABSOLUTE AUTO 0.19 K/mm3 (0.00-0.10); IMMATURE GRAN PERCENT AUTO 1 % (0-1); LYMPHOCYTES PERCENT AUTO 90 % (21-46); MONOCYTES ABSOLUTE AUTO 0.44 K/mm3 (0.16-1.47); MONOCYTES PERCENT AUTO 2 % (4-13); Mean Corpuscular Volume 105 fL (80-100); NEUTROPHILS PERCENT AUTO 6 % (41-73)
[2021-04-08 05:17] LABS: International Normalized Ratio 1.34; Prothrombin Time Results 13.8 Sec (9.7-11.5)
[2021-04-08 05:33] LABS: Albumin, Blood 3.1 g/dL (3.4-5.0); Bilirubin, Total 1.5 mg/dL (0.1-1.0); Bun/Creatinine Ratio 48.6 (12.0-20.0); Calcium, Blood 8.8 mg/dL (8.5-10.1); Creatinine, Blood 1.85 mg/dL (0.60-1.20); Magnesium, Blood 2.7 mg/dL (1.6-2.4); Phosphorus, Blood 3.3 mg/dL (2.5-4.9); Potassium, Blood 3.8 mmol/L (3.5-5.5); Total Protein, Blood 6.1 g/dL (6.4-8.2)
--- NOTE | 2021-04-08 06:10 | NUR ---
End of Shift Summary: Pt progressively became confused and comabtive overnight. Around 0100 pt pulled out 2 PIVs, was put on restraints and started to hallucinate (seeing family members in the room, trying to get out of bed). CIWA protocol was initiated to help with agitation, combativeness and confusion. Pt still confused around 0500 when phleb tried to draw lab work, pt was combative and threatened to hurt staff. Pt still remains on restraints, currently calm and doing more self talk. Pt was put on CPAP overnight but pt refused to keep it on, so pt has been on RA overnight saturations in mid 90's. Still in AFIB with HR ranging from 30 - 70's, BP stable. Pt skin very fragile, and ecchymotic throughout. Groin and perineal area still very excorciated, cleansed and used antifungal powder per order. Pt right sheath still in, could probably pull it out since pt has appropriate access now. Sheath is clean, dry and intact with no infusions running through lumen.
--- NOTE | 2021-04-08 07:30 | NUR ---
ASSUMED CARE: PT AWAKE IN BED, LOOKING AT CEILING, STATING HE NEEDS TO FIX SOMETHING. DID NOT TAKE MUCH NOTICE TO STAFF AT BEDSIDE. BILATERAL WRIST RESTRAINTS IN PLACE FOR INCREASED CONFUSION OVERNIGHT. DR TOMPKINS CAME IN TO SEE PT AND IS AWARE THAT PT HAS BEEN NPO OVERNIGHT BUT HAD SWALLOWING DIFFICULTY WITH DINNER. SUGGESTS PT COMPLETE EGD THEN DO BEDSIDE SWALLOW AFTER WITH SPEECH EVAL FOR FURTHER RECOMMENDATIONS FOR TOMORROW. FAMILY CALLED AND MENTIONED TO NIGHT RN THAT THEY WANTED PT COMFORT CARE. DAUGHTER YESTERDAY EVENING MENTIONED WANTING HOSPICE AT DISCHARGE. DR TOMPKINS AWARE OF THIS AND MESSAGE LEFT WITH PALLIATIVE CARE TO DISCUSS FURTHER. PROTONIX GTT AND ORDERED ELECTROLYTES RUNNING. NO FURTHER NEEDS AT THIS TIME.
--- NOTE | 2021-04-08 11:00 | NUR ---
Spoke with Primary RN Dr Eriberto Mejia and discussed case. Pt's daughters inquired about comfort care and hospice. Reviewed plan of care and discussed appropriateness of hospice once Pt is medically stable. Pt hospitalized for GI Bleed. His medical history and comorbidities include: Metz's Esophagus, GERD, Hiatal Hernia, Combined Systolic and Diastolic CHF, COPD, Afib, Celiac Disease, CANDACE, Gastric Polyps, HTN, AAA, HLD, ANTOHNY, Chronic Bronchitis, Pulmonary Nodule, Leukemia (receiving treatment), DM2, Mediastinal Lymphadenopathy, and history of Prostate Cancer. Pt resting in bed upon arrival. Pt appears more lethargic and mildy somnolent during visit. MIKIE Alcala reports Pt was given Ativan for symptom management. Pt attempts to respond verbally and mumbles a couple of incoherant words. Currently on 02 via ME. Called and spoke with Pt's spouse Hermes. Provided update and reviewed current plan of care. Discussed the option for hospice in the future and educated on hospice philosophy. Offered therapeutic listening and answered questions. Hermes reports at baseline Pt requires assistance with transfers, ambulation, uses a walker, needs assistance with bathing and dressing. Pt also is incontinent of bowel and bladder. Pt at baseline also experiences dysphasia and has poor appetite. Continued therapeutic listening. Hermes expresses appreciation and reports no other concerns. She reports she will discuss options further with family. PPS 40% ADLs 5/6 Pt high risk for readmission. Palliative Care will remain available for supportive and therapeutic visits.
--- NOTE | 2021-04-08 11:04 | NUR ---
PT'S DAUGHTER ROSITA CALLED TO SEE IF OUR ACOUSTICAL TILE CARPENTERS SUPERVISOR WITH FOUR VISITORS COULD SAY A PRAYER OVER PT PRIOR TO HIS PROCEDURE. DISCUSSED WITH ROTARY DRILLER HELPER, COORDINATOR, AND NURSING BONDING AGENT AND LET FAMILY KNOW THAT ALL FOUR VISITORS CAN COME IN FOR PRAYER AND THEN ONLY 1 VISITOR FOR THE VISITING HOURS. ACOUSTICAL TILE CARPENTERS SUPERVISOR ANAYA SAID HE COULD COME SEE PT AT 3PM. ROTARY DRILLER HELPER AWARE
--- NOTE | 2021-04-08 13:22 | NUR ---
PT IN ICU ROOM FOR PROCEDURE.ALTERED MENTAL STATUS. NPO CONFIRMED BY SENIOR DATA DEVELOPER. History, Chart, Medications and Allergies reviewed before start of procedure.CONSENT FOR PROCEDURE AND ANESTHESIA WILL BE OBTAINED VIA PHONE FROM ,RN,ANESTHESIOLOGIST, AND DR. WALDEN
--- NOTE | 2021-04-08 13:47 | NUR ---
04/08/21 1347 Naomie Jackson History, Chart, Medications and Allergies reviewed before start of procedure.MONITOR INTACT WITH CONTINUOUS PULSE OXIMETRY, 3 LEAD, AND INTERMITTENT BP.O2 VIA N/C INTACT THROUGHOUT SEDATION/PROCEDURE. See Anesthesia [id number]
--- NOTE | 2021-04-08 14:11 | NUR ---
EGD COMPLETED BY DR WALDEN. EROSIONS OF PYLORIS AND POLYPS FOUND. PT'S VSS. PT REMAINS DROWSY AND APPEARS TO BE ASLEEP. DR WALDEN CALLED PTS' DAUGHTER TO UPDATE HER ON PROCEDURE COMPLETION. PLAN FOR FAMILY TO COME IN AT 3PM WITH PREIST FOR PRAYERS OVER PT.
--- NOTE | 2021-04-08 18:28 | NUR ---
SHIFT SUMMARY: PT HAD EGD DONE TODAY WITH EROSIONS FOUND AROUND PYLORIS. POLYP SAMPLES COLLECTED WELL. PT HAD TWO DARK STOOL TODAY. NPO DUE TO BEING LETHARGIC AND UNSAFE FOR ATTEMPTING BEDSIDE SWALLOW EVAL. SPEECH EVAL ORDERED. MEDICATED X2 FOR WITHDRAWALS AND X1 FOR PAIN AND X1 FOR BLOOD PRESSURE. BILATERAL WRIST RESTRAINTS DUE TO CONFUSION. FAMILY CAME IN WITH PREIST TODAY TO PRAY OVER PT. MESSAGE LEFT WITH PALLIATIVE CARE TO DISCUSS HOSPICE AT DISCHARGE. NO ACUTE NEEDS AT THIS TIME.
[2021-04-09 05:21] LABS: International Normalized Ratio 1.27; Prothrombin Time Results 13.1 Sec (9.7-11.5)
[2021-04-09 05:26] LABS: BASOPHILS ABSOLUTE AUTO 0.03 K/mm3 (0.00-0.23); BASOPHILS PERCENT AUTO 0 % (0-2); EOSINOPHILS ABSOLUTE AUTO 0.25 K/mm3 (0.00-0.68); EOSINOPHILS PERCENT AUTO 2 % (0-6); Hematocrit 25.4 % (37.0-53.0); Hemoglobin 8.6 g/dL (13.5-17.5); Mean Corpuscular HGB 35.1 pg (26.0-34.0); Mean Corpuscular HGB Conc 33.9 g/dL (31.5-36.5); Mean Corpuscular Volume 104 fL (80-100); NRBC ABSOLUTE 0.06 K/mm3 (0.00-0.02); NRBC Auto 0.5 /100 WBC (0.0-0.2); Platelet Count 52 K/mm3 (150-400); RDW Coefficient Variation 22.4 % (11.7-14.2); RDW Standard Deviation 74.4 fL (35.1-46.3); Red Blood Cell Count 2.45 M/mm3 (4.30-5.90); White Blood Cell Count 13.23 K/mm3 (4.00-11.30)
[2021-04-09 05:30] LABS: IMMATURE GRAN ABSOLUTE AUTO 0.26 K/mm3 (0.00-0.10); IMMATURE GRAN PERCENT AUTO 2 % (0-1); LYMPHOCYTES ABSOLUTE AUTO 11.09 K/mm3 (0.84-5.20); LYMPHOCYTES PERCENT AUTO 84 % (21-46); MONOCYTES ABSOLUTE AUTO 0.47 K/mm3 (0.16-1.47); MONOCYTES PERCENT AUTO 4 % (4-13); Mean Platelet Volume 14.2 fL (9.1-12.4); NEUTROPHILS ABSOLUTE AUTO 1.13 K/mm3 (1.96-9.15); NEUTROPHILS PERCENT AUTO 9 % (41-73)
[2021-04-09 05:53] LABS: Albumin, Blood 3.1 g/dL (3.4-5.0); Bilirubin, Total 1.4 mg/dL (0.1-1.0); Bun/Creatinine Ratio 49.7 (12.0-20.0); Creatinine, Blood 1.49 mg/dL (0.60-1.20); Magnesium, Blood 2.8 mg/dL (1.6-2.4); Phosphorus, Blood 3.2 mg/dL (2.5-4.9); Potassium, Blood 3.8 mmol/L (3.5-5.5); Total Protein, Blood 6.1 g/dL (6.4-8.2)
--- NOTE | 2021-04-09 06:12 | NUR ---
Shift Summary: Pt mentation slightly improved. At the start of shift, pt was somnolent and only responded to painful stimuli. Around 0600 pt start to wake up to voice but still confused. Pt still incomprehensibly mumbling, disorbing and pulling on lines. Still on bilat soft restraints. Unable to answer any questions, still confused. CIWA 0-8 overnight, no Ativan given and no signs of pain seen Lung sounds are clear, weak cough with small yellow thick secretions. CPAP was on all night and was taken off at 0600, now on RA saturation 91% - 92%. BP slightly elevated at the start of shift, repositioned cuff from left forearm to left upper arm and was able to get a more accurate BP reading, generalized edema +2, afebrile. Pt had 1x large BM, still currently NPO due to swallowing difficulty, speach evaluation ordered for today. Douglass catheter remains patent, catheter care done and has adequate UO. Rt subclavian sheath removed at 0600, no complications and site is clean dry and intact. Pt still has 2 20g bilateral PIVs. Pt was also turned q2 using ceiling lift.
--- NOTE | 2021-04-09 08:00 | NUR ---
AM ASSESSMENT: PT IS AWAKE AND ALERT. CIWA 7. PT MOANING AND REPORTS LOW BACK AND GENERALIZED PAIN. MED WITH DILAUDID 0.5 MG IVP X 1 AND REPOSITIONED TO COMFORT IN HIGH RO'S POSITION. PT IS ORIENTED TO SELF AND FOLLOWS SOME COMMANDS, BUT OVERALL CONFUSED. PT REACHES FOR LINES AND TUBES WHEN NOT RESTRAINED. TEMP 99.2-ECG CONTINUES AF WITH RATE 70-80'S. BP STABLE. LUNGS WITH WHEEZED THROUGH OUT. OCCASIONAL MOIST, NONPRODUCTIVE COUGH. SATS>90% ON RA. PT NPO AT THIS TIME. SWALLOW EVAL HAS BEEN ORDERED. PT NOT ABLE TO CONSISTENTLY FOLLOW COMMANDS AT THIS TIME. DUVAL WITH MODERATE AMOUNT OF DARK, YELLOW URINE TO BSD. SKIN WITH SCATTERED ECCYMOSIS-PARTICULARLY TO THE ARMS.
--- NOTE | 2021-04-09 10:15 | NUR ---
PT MOANING AND GRIMACING, BUT UNABLE TO SPECIFY WHERE HE IS HURTING. MED WITH DILAUDID 0.5 MG IVP X 1. AFTER APROXIMATELY 5 MINUTES, DR. TOMPKINS ARRIVED. PT STILL MOANING AT THAT TIME. VERBALIZED CONCERN THT PT MAY NOT EXHIBIT THE SAME SIGNS OF ETOH WITDRAWL THAT A PT WITH FEWER COMORBIDITIES WOULD. AWARE THAT CIWA WAS 7 THIS AM. PT MEDICATED WITH ATIVAN [address] TOMPKINS RECOMMENDATION. PT IS NOW PCU STATUS.
--- NOTE | 2021-04-09 12:00 | NUR ---
PT RESPONDS TO VERBAL STIMULI BY GRIMACING AND MOANING. RESPIRATIONS AUDIBLY WHEEZY. RR 28-PT UTILIZING ACCESSORY MUSCLES AND ABDOMEN TO BREATH. LUNGS WITH SCATTERED WHEEZES THROUGH OUT. SATS>90% ON RA. DR. TOMPKINS UPDATED. STAT DUO NEB ORDERED. DR. TOMPKINS BY BRIEFLY TO EVALUATE PT. DUO NEBS ORDERED EVERY 4 HOURS PRN.
--- NOTE | 2021-04-09 15:36 | NUR ---
PT DAUGHTER ROSITA IN FOR VISIT. UPDATED TO CURRENT STATUS AND PLAN OF CARE. PT DAUGHTER ASKING QUESTIONS ABOUT COMFORT CARE/END OF LIFE ISSUES. BOTH CHRISTIANO FROM PALLIATIVE CARE AND DR. TOMPKINS MADE AWARE. PLAN FOR PALLIATIVE CARE, MD, AND PT FAMILY TO MEET AND DISCUSS END OF LIFE ISSUES. PT DAUGHTER TO GET HER MOTHER AND SISTERS ON THE PHONE DURING THE MEETING.
--- NOTE | 2021-04-09 17:22 | NUR ---
PT PLACED ON COMFORT MEASURES. PT GIVEN MORPHINE SULFATE 2MG IV X'S 1 ORDERED. PT GRIMACING PRIOR TO DOSE. RESP 20. FAMILY AT BEDSIDE.
--- NOTE | 2021-04-09 19:51 | NUR ---
ASSUMED CARE: Pt resting comfortably in bed, no signs/symptoms of pain during shift report, did give 10 mg Roxanol during initial assessment due to signs of air hunger. Pt tolerated Roxanol and resting comfortably again. Catheter care done and will continue to reposition pt q2. Comfort measures will also be continued.
--- NOTE | 2021-04-10 06:02 | NUR ---
End of Shift Summary: Pt resting comfortably, moaning when stimulated or when being repositioned. Mumbling and moaning but no comprehensible words. Comfort measures continued and gave morphine per order to help with air hunger and pain through FLACC. Pt is on RA, saturations in the low to mid 80's. Pt has no signs of respiratory distress at the moment. No signs of pain as well. Family will come and visit again today. They are very pleasant, helpful and cooperative.
--- NOTE | 2021-04-10 07:26 | NUR ---
PT GRIMACING, MOANING, AND LABORING TO BREATHE. RESPIRATIONS ARE AUDIBLY MOIST. PT UNABLE TO CLEAR SECRETIONS. LUNGS DIMINISHED THROUGH OUT WITH SCATTERED WHEEZES. AM AND ORAL CARE DONE. ATROPINE DROPS GIVEN FOR SECRETIONS. DILAUDID AND ATIVAN GIVEN FOR AIR HUNGER. SATS TRENDING 75% ON RA.
--- NOTE | 2021-04-10 08:00 | NUR ---
PT DAUGHTER ROSITA CONTACTED PT DEMISE APPEARS TO BE MORE IMINENT. ROSITA TO NOTIFY MRS. CALLE AND HER SIBLINGS.
--- NOTE | 2021-04-10 08:02 | NUR ---
PT GRIMACING, MOANING, AND CRYING OUT. MED WITH MORPHINE 4 MG IVP X 1.
--- NOTE | 2021-04-10 08:15 | NUR ---
PT WITH RN AT BEDSIDE. SEE FINAL DISCHARGE CHECK LIST. PT DAUGHTER ROSITA NOTIFIED.
== END 2021-04-10 08:15 | DRG 378 ==
LOC: ER 18:12 → ICUW 22:04 → ERHOLD 22:04 → ICUW 04-05 02:20
PROVIDERS: Family Medicine; Internal Medicine; Pharmacist; Physician Assistant; ADMIT Internal Medicine
PROC: 30233K1 Transfusion of Nonautologous Frozen Plasma into Peripheral Vein, Percutaneous Approach (ICD-10-PCS; principal; 2021-04-04)
PROC: 30233N1 Transfusion of Nonautologous Red Blood Cells into Peripheral Vein, Percutaneous Approach (ICD-10-PCS; 2021-04-04)
PROC: HZ2ZZZZ Detoxification Services for Substance Abuse Treatment (ICD-10-PCS; 2021-04-05)
PROC: 5A1223Z Performance of Cardiac Pacing, Continuous (ICD-10-PCS; 2021-04-06)
PROC: 02HK3JZ Insertion of Pacemaker Lead into Right Ventricle, Percutaneous Approach (ICD-10-PCS; 2021-04-06)
PROC: 0DB68ZZ Excision of Stomach, Via Natural or Artificial Opening Endoscopic (ICD-10-PCS; 2021-04-08)
DX: K25.4 Chronic or unspecified gastric ulcer with hemorrhage (principal); D68.32 Hemorrhagic disorder due to extrinsic circulating anticoagulants; I50.42 Chronic combined systolic (congestive) and diastolic (congestive) heart failure; I13.0 Hypertensive heart and chronic kidney disease with heart failure and stage 1 through stage 4 chronic kidney disease, or unspecified chronic kidney disease; N17.9 Acute kidney failure, unspecified; D62 Acute posthemorrhagic anemia; I48.19 Other persistent atrial fibrillation; G93.40 Encephalopathy, unspecified; K92.1 Melena; Z66 Do not resuscitate; Z51.5 Encounter for palliative care; K22.70 Barrett's esophagus without dysplasia; N18.30 Chronic kidney disease, stage 3 unspecified; I35.0 Nonrheumatic aortic (valve) stenosis; T45.515A Adverse effect of anticoagulants, initial encounter; K21.9 Gastro-esophageal reflux disease without esophagitis; R29.6 Repeated falls; M54.2 Cervicalgia; K31.7 Polyp of stomach and duodenum; K44.9 Diaphragmatic hernia without obstruction or gangrene; K70.30 Alcoholic cirrhosis of liver without ascites; G89.29 Other chronic pain; F10.10 Alcohol abuse, uncomplicated; E78.5 Hyperlipidemia, unspecified; G47.33 Obstructive sleep apnea (adult) (pediatric); E11.40 Type 2 diabetes mellitus with diabetic neuropathy, unspecified; Z99.89 Dependence on other enabling machines and devices; Z85.46 Personal history of malignant neoplasm of prostate; Z90.79 Acquired absence of other genital organ(s); Z98.890 Other specified postprocedural states; Z98.1 Arthrodesis status; Z87.891 Personal history of nicotine dependence; Z88.8 Allergy status to other drugs, medicaments and biological substances; Z79.01 Long term (current) use of anticoagulants; Z79.899 Other long term (current) drug therapy; Z78.1 Physical restraint status
CPT/HCPCS: 0241U; 33210; 36415; 36430; 51702; 70450; 71045; 74176; 80053; 80162; 82140; 82272; 82947; 83735; 84100; 84484; 85014; 85018; 85025; 85610; 85730; 86850; 86900; 86901; 86923; 87040; 88305; 88342; 93005; 93010; 94640; 94660; 94760; 96365; 96375; 99285-25; A9270; C1751; C1769; C9113; J0171; J0360; J0461; J0690; J0696; J1170; J1265; J1430; J1644; J2020; J2060; J2270; J2405; J2704; J3411; J3430; J3475; J3480; J7030; J7040; J7042; J7050; J7120; P9016; P9035; P9059